=== PATIENT | female | born 1940 | race African-American/Black ===

== ENCOUNTER 2016-10-16 03:10 | Inpatient (IN) | payer MEDICARE, MEDICAID ==
[~2016-10-16] VITALS: Ht 162.6 cm; Wt 70.1 kg
[2016-10-16] VITALS (10 sets, daily range): BP systolic 116–151; BP diastolic 75–110
[~2016-10-16 03:10] MED LIST: ATORVASTATIN CA20 MG ORAL; CARVEDILOL3.125 MG ORAL; CLOPIDOGREL75 MG ORAL; DIOVAN40 MG ORAL; FUROSEMIDE20 M1 ORAL; HYDRALAZINE HCL10 MG ORAL; RANITIDINE HCL150 MG ORAL
[2016-10-16] MEDS ORDERED: Metoprolol 5mg/5ml Inj IVP ONE (03:30)
[2016-10-16] MEDS ORDERED: NITROGLYCERIN0.4 MG SL (03:36)
[2016-10-16] MEDS ORDERED: NEPHRO-VITE RX1 EAC1 PO (03:36)
[2016-10-16] MEDS ORDERED: ASPIRIN81 MG ORAL (03:36)
[2016-10-16] MEDS ORDERED: ATORVASTATIN CA80 MG ORAL (03:36)
[2016-10-16] MEDS ORDERED: LASIX20 M1 ORAL (03:36)
[2016-10-16] MEDS ORDERED: FERROUS SULFAT325 MG ORAL (03:36)
[2016-10-16] MEDS ORDERED: COREG12.5 MG ORAL (03:36)
[2016-10-16 03:44] LABS: BASOPHILS % (AUTO) 1.3 % (0.0-2.0); EOSINOPHILS % (AUTO) 1.1 % (0.0-3.0); LYMPHOCYTES % (AUTO) 24.5 % (20.0-45.0); MEAN CORPUSCULAR HEMOGLOBIN 30.2 PG (27.0-31.0); MEAN CORPUSCULAR HGB CONC 32.9 G/DL (32.0-36.0); MEAN CORPUSCULAR VOLUME 92 FL (80-99); MEAN PLATELET VOLUME 7.2 FL (6.5-10.1); MONOCYTES % (AUTO) 9.4 % (1.0-10.0); NEUTROPHILS % (AUTO) 63.7 % (45.0-75.0); PLATELET COUNT 203 K/UL (150-450); RED BLOOD COUNT 3.57 M/UL (4.20-5.40); WHITE BLOOD COUNT 5.1 K/UL (4.8-10.8)
[2016-10-16] MEDS ORDERED: TRAMADOL HCL50 MG ORAL (03:49)
[2016-10-16] MEDS ORDERED: XANAX2 MG ORAL (03:49)
[2016-10-16] MEDS ORDERED: GABAPENTIN300 MG ORAL (03:49)
[2016-10-16] MEDS ORDERED: ADVAIR 100-501 EACH INH (03:49)
[2016-10-16 04:07] LABS: TROPONIN I < 0.30 ng/mL (<=0.30)
[2016-10-16 04:08] LABS: ALANINE AMINOTRANSFERASE 50 U/L (3-33); ALBUMIN/GLOBULIN RATIO 1.1 (1.0-2.7); ANION GAP 22 (5-15); ASPARTATE AMINO TRANSFERASE 60 U/L (5-40); CALCIUM 10.2 mg/dL (8.6-10.2); CARBON DIOXIDE 17 mEQ/L (20-30); CHLORIDE 98 mEQ/L (98-107); CREATININE 2.2 mg/dL (0.5-0.9); HEMOLYSIS 5; POTASSIUM 4.1 mEQ/L (3.4-4.9); SODIUM 137 mEQ/L (135-145); TOTAL PROTEIN 6.8 g/dL (6.6-8.7)
[2016-10-16 04:18] LABS: CKMB 4.1 ng/mL (< 3.8)
--- NOTE | 2016-10-16 05:32 | Emergency Room Report ---
History of Present Illness General Chief Complaint: Chest Pain Source: Patient, Medical Record, EMS Present Illness HPI This is a 75-year-old female with a history of cardiomyopathy and CHF. Her ejection fraction is around 20% per family. Patient is scheduled for AICD and pacemaker. She has not made an appointment yet.She presents with chest pain and shortness of breath. Onset tonight. No fever or chills. No radiation. Worse with exertion. She took nitroglycerin without much relief. EMS gave her aspirin and nitroglycerin. Similar symptom in the past. Allergies: Coded Allergies: No Known Allergies (Unverified , 10/08/15) Patient History Past Medical History: see triage record, old chart reviewed, HTN Past Surgical History: other Pertinent Family History: none Social History: Denies: smoking Now: No Immunizations: other Reviewed Nursing Documentation: PMH: Agreed, PSxH: Agreed Nursing Documentation-PMH Hx Cardiac Problems: Yes - stent placement Hx Hypertension: Yes Hx Diabetes: No Hx Cancer: No Hx Gastrointestinal Problems: No Hx Neurological Problems: Yes Hx Cerebrovascular Accident: Yes - 2008 Review of Systems Eye: Denies: blurred vision, eye pain ENT: Denies: ear pain, nose congestion, throat swelling Respiratory: Denies: cough, shortness of breath Cardiovascular: Reports: chest pain, palpitations Gastrointestinal: Denies: abdominal pain, diarrhea, nausea, vomiting Musculoskeletal: Denies: back pain, joint pain Skin: Denies: rash Neurological: Denies: headache, numbness Endocrine: Denies: increased thirst, increased urine Hematologic/Lymphatic: Denies: easy bruising All Other Systems: negative except mentioned in HPI Physical Exam Vital Signs Date Time Temp Pulse Resp B/P Pulse Ox O2 Delivery O2 Flow Rate FiO2 10/16/16 03:06 97.9 127 19 151/110 96 Room Air 10/16/16 05:17 2.0 vitals with tachycardia and hypertension Sp02 EP Interpretation: reviewed, normal General Appearance: alert, mild distress, Chronically Ill Head: normocephalic, atraumatic Eyes: bilateral eye EOMI, bilateral eye PERRL ENT: hearing grossly normal, normal pharynx Neck: full range of motion, supple, no meningismus Respiratory: chest non-tender, decreased breath sounds Cardiovascular #1: regular rate, rhythm, no murmur, tachycardia Gastrointestinal: normal bowel sounds, non tender, no mass, no organomegaly, no bruit, non-distended Musculoskeletal: back normal, normal range of motion Neurologic: alert, oriented x3 Psychiatric: mood/affect normal Skin: warm/dry Medical Decision Making Diagnostic Impression: Primary Impression: ACS (acute coronary syndrome) Additional Impressions: Rapid palpitations Anemia Qualified Codes: D64.9 - Anemia, unspecified Hypertension Qualified Codes: I10 - Essential (primary) hypertension CKD (chronic kidney disease) Qualified Codes: N18.9 - Chronic kidney disease, unspecified Cardiomyopathy Qualified Codes: I42.9 - Cardiomyopathy, unspecified ER Course Patient presents with chest pain and palpitation. Heart rate improved after Lopressor. No evidence of ACS, PE, dissection. Will admit for further workup. I will get the patient to Dr. Alvarez who admitted her last year. Lab Results Impression labs at baseline EKG Diagnostic Results Rate: normal, tachycardiac Rhythm: NSR ST Segments: other Other Impression EKG #2: NSR at 76. LBBB. No ST elevation. Interpreted by me. Rhythm Strip Diag. Results EP Interpretation: yes Rate: 80 Rhythm: NSR, no PVC's, no ectopy Chest X-Ray Diagnostic Results EP Interpretation: Yes Findings: no consolidation, no effusion, no pneumothorax, no acute cardiopulmonary disease, other - CM Number of Views: 1 Last Vital Signs Date Time Temp Pulse Resp B/P Pulse Ox O2 Delivery O2 Flow Rate FiO2 10/16/16 05:17 97.9 78 21 128/78 100 Nasal Cannula 2.0 Status: improved Disposition: ADMITTED INPATIENT Condition: Serious Referrals: NOT CHOSEN DIEGO/,REFERRING (PCP) EB NORMAN M.D. Oct 16, 2016 05:32
[2016-10-16 07:19] LABS: APPEARANCE,URINE CLEAR; KETONES,URINE NEGATIVE (NEGATIVE); LEUKOCYTE ESTERASE ,URINE 3+ (NEGATIVE); NITRITE,URINE NEGATIVE (NEGATIVE); PH,URINE 5 (4.5-8.0); PROTEIN,URINE 2+ (NEGATIVE); UROBILINOGEN,URINE NORMAL MG/DL (0.0-1.0)
[2016-10-16 07:32] LABS: BACTERIA,URINE FEW /HPF; RBC,URINE 0-2 /HPF (0 - 2); SQUAMOUS EPITHELIAL CELL,UR FEW /LPF (NONE/OCC)
[2016-10-16 11:52] LABS: TROPONIN I < 0.30 ng/mL (<=0.30)
--- NOTE | 2016-10-16 12:11 | Cardiology Report ---
APPROVED REPORT EKG Measurement Heart [id number] Normal sinus rhythm Left axis deviation Left bundle branch block Abnormal ECG
[2016-10-16] MEDS ORDERED: VITAMIN D250000 UNI1 (19:01)
[2016-10-17] VITALS: BP 145/97
[2016-10-17] MEDS: HydrALAZINE 10mg Tab ORAL SCH ×4 (00:15→17:14)
[2016-10-17] MEDS: Heparin 5000 units/ml inj SUBQ SCH ×3 (00:16→21:33)
[2016-10-17 04:00] VITALS: BP 133/93
[2016-10-17] MEDS: traMADol 50mg tab ORAL PRN ×2 (05:04→21:32)
[2016-10-17] MEDS: Nitroglycerin Subl 0.4mg tab (Bottle Of 25) SL PRN ×2 (07:43→07:54)
[2016-10-17 08:00] VITALS: BP 136/101
[2016-10-17 08:02] LABS: BASOPHILS % (AUTO) 1.2 % (0.0-2.0); EOSINOPHILS % (AUTO) 1.7 % (0.0-3.0); MEAN CORPUSCULAR HEMOGLOBIN 31.9 PG (27.0-31.0); MEAN CORPUSCULAR HGB CONC 34.4 G/DL (32.0-36.0); MEAN CORPUSCULAR VOLUME 93 FL (80-99); MEAN PLATELET VOLUME 6.6 FL (6.5-10.1); NEUTROPHILS % (AUTO) 50.2 % (45.0-75.0); PLATELET COUNT 220 K/UL (150-450); RED BLOOD COUNT 3.51 M/UL (4.20-5.40); RED CELL DISTRIBUTION WIDTH 13.8 % (11.6-14.8)
[2016-10-17] MEDS: Aspirin Baby 81mg ORAL SCH (08:22)
[2016-10-17 08:28] LABS: TROPONIN I < 0.30 ng/mL (<=0.30)
[2016-10-17 08:32] LABS: ANION GAP 16 (5-15); CALCIUM 10.3 mg/dL (8.6-10.2); CARBON DIOXIDE 20 mEQ/L (20-30); CHLORIDE 105 mEQ/L (98-107); CREATININE 2.4 mg/dL (0.5-0.9); HEMOLYSIS 0; PHOSPHORUS 3.9 mg/dL (2.5-4.8); POTASSIUM 4.6 mEQ/L (3.4-4.9); SODIUM 141 mEQ/L (135-145)
[2016-10-17 12:00] VITALS: BP 138/92
--- NOTE | 2016-10-17 12:00 | Consultation ---
History of Present Illness General Date patient seen: Oct 17, 2016 Chief Complaint: Chest Pain Referring physician: Dr. Epperson Reason for Consultation: Chest pain, dypsne Present Illness HPI 75-year-old female with a history of cardiomyopathy and CHF. Her ejection fraction is around 20% per family. .She presents with chest pain and shortness of breath a few hours prior to presentation. No fever or chills. No radiation. Worse with exertion. She took nitroglycerin without much relief. EMS gave her aspirin and nitroglycerin. She doesn't have any phlegmn, nor fever or chills. On and off episodes of dyspnea. especially WALKER Allergies: Coded Allergies: No Known Allergies (Unverified , 10/08/15) Medication History Scheduled Aspirin* (Aspirin*), 81 MG ORAL DAILY, (Reported) Atorvastatin Calcium* (Atorvastatin Calcium*), 20 MG ORAL BEDTIME, (Reported) Atorvastatin Calcium* (Lipitor*), 80 MG ORAL BEDTIME, (Reported) Carvedilol (Coreg), 0.5 TAB ORAL EVERY 12 HOURS, (Reported) Carvedilol* (Carvedilol*), 3.125 MG ORAL EVERY 12 HOURS, (Reported) Clopidogrel* (Clopidogrel*), 75 MG ORAL DAILY, (Reported) Ferrous Sulfate* (Ferrous Sulfate*), 325 MG ORAL TWICE A DAY, (Reported) Fluticasone/Salmeterol (Advair 100-50 Diskus), 1 PUFF INH EVERY 6 HOURS, ( Reported) Furosemide* (Lasix*), 20 MG ORAL DAILY, (Reported) Furosemide* (Lasix*), 20 MG ORAL TWICE A DAY, (Reported) Gabapentin* (Gabapentin*), 300 MG ORAL BEDTIME, (Reported) Hydralazine Hcl* (Hydralazine Hcl*), 10 MG ORAL EVERY 6 HOURS, (Reported) Nitroglycerin (Nitroglycerin), 0.4 MG SL x3 q 5 mins, (Reported) Ranitidine Hcl* (Zantac*), 150 MG ORAL DAILY, (Reported) Valsartan (Diovan), 40 MG ORAL DAILY, (Reported) Vit B Cmplx 3/Fa/Vit C/Biotin (Nephro-Riley Rx Tablet), 1 EACH PO DAILY, ( Reported) Scheduled PRN Alprazolam* (Xanax*), 2 MG ORAL BEDTIME PRN for PRN ANXIETY/AGITATION, (Reported ) Tramadol Hcl* (Ultram*), 50 MG ORAL Q6H PRN for For Pain, (Reported) Miscellaneous Medications Ergocalciferol (Vitamin D2)* (Vitamin D*), (Reported) Patient History Healthcare decision maker Resuscitation status Full Code Advanced Directive on File No Past Medical/Surgical History Past Medical/Surgical History: (1) CKD (chronic kidney disease) (2) Hypertension (3) Anemia Review of Systems All Other Systems: negative except mentioned in HPI Physical Exam General Appearance: WD/WN, alert Lines, tubes and drains: peripheral, central line HEENT: normocephalic, atraumatic Neck: non-tender, normal alignment Respiratory/Chest: chest wall non-tender, lungs clear Cardiovascular/Chest: normal peripheral pulses, normal rate Abdomen: normal bowel sounds, non tender Genitourinary/Rectal: normal genital exam, normal rectal exam Last 24 Hour Vital Signs Date Time Temp Pulse Resp B/P Pulse Ox O2 Delivery O2 Flow Rate FiO2 10/17/16 08:22 128 136/101 10/17/16 08:00 97.7 128 20 136/101 100 Nasal Cannula 2.0 10/17/16 08:00 128 10/17/16 07:54 142/100 10/17/16 07:43 160/110 10/17/16 05:47 123/83 10/17/16 04:00 87 10/17/16 04:00 97.7 87 20 133/93 97 Room Air 10/17/16 00:15 145/97 10/17/16 00:00 97.5 87 16 145/97 96 Room Air 10/17/16 00:00 90 10/16/16 23:10 88 127/83 10/16/16 20:00 90 10/16/16 17:57 97.9 88 21 127/83 99 Room Air 10/16/16 17:29 98.2 81 16 143/80 99 Room Air 2.0 10/16/16 17:24 98.2 81 16 143/80 99 Room Air 2.0 10/16/16 16:13 98.2 87 16 119/83 97 Nasal Cannula 2.0 10/16/16 16:00 88 10/16/16 13:32 90 16 132/95 98 Nasal Cannula 2.0 10/16/16 13:32 97.9 83 16 126/87 98 Nasal Cannula 2.0 10/16/16 12:00 83 16 98 Nasal Cannula 2.0 Intake and Output 10/16/16 10/17/16 19:00 07:00 Intake Total 465 ml 240 ml Output Total 700 ml Balance -235 ml 240 ml Intake Oral 465 ml 240 ml Output Urine Total 700 ml Laboratory Tests Test 10/17/16 07:10 White Blood Count 5.0 K/UL (4.8-10.8) Red Blood Count 3.51 M/UL (4.20-5.40) L Hemoglobin 11.2 G/DL (12.0-16.0) L Hematocrit 32.5 % (37.0-47.0) L Mean Corpuscular Volume 93 FL (80-99) Mean Corpuscular Hemoglobin 31.9 PG (27.0-31.0) H Mean Corpuscular Hemoglobin Concent 34.4 G/DL (32.0-36.0) Red Cell Distribution Width 13.8 % (11.6-14.8) Platelet Count 220 K/UL (150-450) Mean Platelet Volume 6.6 FL (6.5-10.1) Neutrophils (%) (Auto) 50.2 % (45.0-75.0) Lymphocytes (%) (Auto) 39.0 % (20.0-45.0) Monocytes (%) (Auto) 8.0 % (1.0-10.0) Eosinophils (%) (Auto) 1.7 % (0.0-3.0) Basophils (%) (Auto) 1.2 % (0.0-2.0) Sodium Level 141 mEQ/L (135-145) Potassium Level 4.6 mEQ/L (3.4-4.9) Chloride Level 105 mEQ/L (98-107) Carbon Dioxide Level 20 mEQ/L (20-30) Anion Gap 16 (5-15) H Blood Urea Nitrogen 41 mg/dL (7-23) H Creatinine 2.4 mg/dL (0.5-0.9) H Estimat Glomerular Filtration Rate mL/min (>60) Glucose Level 124 mg/dL (74-106) H Calcium Level 10.3 mg/dL (8.6-10.2) H Phosphorus Level 3.9 mg/dL (2.5-4.8) Magnesium Level 2.0 mg/dL (1.7-2.5) Troponin I < 0.30 ng/mL (<=0.30) Height (Feet): 5 Height (Inches): 4.00 Weight (Pounds): 164 Medications Current Medications Medications (Trade) Dose Ordered Sig/Haley Route PRN Reason Start Time Stop Time Status Last Admin Dose Admin Acetaminophen (Tylenol) 650 mg Q6H PRN ORAL Mild Pain/Temp > 100.5 10/16/16 20:45 11/15/16 20:44 Aspirin (ASA) 81 mg DAILY ORAL 10/17/16 09:00 11/16/16 08:59 10/17/16 08:22 Atorvastatin Calcium (Lipitor) 20 mg BEDTIME ORAL 10/16/16 22:00 11/15/16 21:59 10/16/16 23:10 Carvedilol (Coreg) 3.125 mg EVERY 12 HOURS ORAL 10/16/16 22:00 11/15/16 21:59 10/17/16 08:22 Clopidogrel Bisulfate (Plavix) 75 mg DAILY ORAL 10/17/16 09:00 11/16/16 08:59 10/17/16 08:22 Ferrous Sulfate (Feosol) 325 mg TWICE A DAY ORAL 10/16/16 23:50 11/15/16 23:49 10/17/16 08:22 Furosemide (Lasix) 20 mg TWICE A DAY ORAL 10/16/16 23:50 11/15/16 23:49 10/17/16 08:22 Gabapentin (Neurontin) 300 mg BEDTIME ORAL 10/16/16 21:00 11/15/16 20:59 10/16/16 23:10 Heparin Sodium (Porcine) (Heparin 5000 units/ml) 5,000 units EVERY 12 HOURS SUBQ 10/16/16 23:51 11/15/16 23:50 10/17/16 08:24 Hydralazine HCl (Apresoline) 10 mg EVERY 6 HOURS ORAL 10/17/16 00:00 11/16/16 00:00 10/17/16 05:47 Nitroglycerin (Ntg) 0.4 mg Q5M PRN SL Prn Chest Pain 10/17/16 07:15 11/16/16 07:14 10/17/16 07:54 Ranitidine HCl (Zantac) 150 mg DAILY ORAL 10/17/16 09:00 11/16/16 08:59 10/17/16 08:22 Tramadol HCl (Ultram) 50 mg Q6H PRN ORAL For Pain 10/16/16 20:45 10/23/16 20:44 10/17/16 05:04 Assessment/Plan Problem List: (1) ACS (acute coronary syndrome) ICD Codes: I24.9 - Acute ischemic heart disease, unspecified SNOMED: 390136020 (2) Shortness of breath ICD Codes: R06.02 - Shortness of breath SNOMED: 892180300 (3) CKD (chronic kidney disease) ICD Codes: N18.9 - Chronic kidney disease, unspecified SNOMED: 539574525 Qualifiers: Qualified Codes: N18.9 - Chronic kidney disease, unspecified (4) Coronary artery disease ICD Codes: I25.10 - Atherosclerotic heart disease of [place] coronary artery without angina pectoris SNOMED: 64802654 Assessment/Plan serial ekg, troponin Echocardiogram cardio evaluation might need some sort of stress studies renal evaluation DARLENE VALERIO Oct 17, 2016 12:00
[2016-10-17] MEDS ORDERED: Nitroglycerin Subl 0.4mg tab (Bottle Of 25) SL SCH (12:30)
--- NOTE | 2016-10-17 12:36 | Cardiology Progress Note ---
Assessment/Plan Assessment/Plan [id number] chest pain mi ruled out hs of rca stent many hyears ago neg perfusion imagign at cv 03/2016 acute n chronic chf dcm pulm htn asthma ckd cr 2-2.4 acei /;arb allergy all trop neg LBBB not new known cm need bp controll will increase hydralazine and add ntp will need to see dr ceballos for manager area as planned as outpt Objective Last 24 Hour Vital Signs Date Time Temp Pulse Resp B/P Pulse Ox O2 Delivery O2 Flow Rate FiO2 10/17/16 12:20 139/107 10/17/16 08:22 128 136/101 10/17/16 08:00 97.7 128 20 136/101 100 Nasal Cannula 2.0 10/17/16 08:00 128 10/17/16 07:54 142/100 10/17/16 07:43 160/110 10/17/16 05:47 123/83 10/17/16 04:00 87 10/17/16 04:00 97.7 87 20 133/93 97 Room Air 10/17/16 00:15 145/97 10/17/16 00:00 97.5 87 16 145/97 96 Room Air 10/17/16 00:00 90 10/16/16 23:10 88 127/83 10/16/16 20:00 90 10/16/16 17:57 97.9 88 21 127/83 99 Room Air 10/16/16 17:29 98.2 81 16 143/80 99 Room Air 2.0 10/16/16 17:24 98.2 81 16 143/80 99 Room Air 2.0 10/16/16 16:13 98.2 87 16 119/83 97 Nasal Cannula 2.0 10/16/16 16:00 88 10/16/16 13:32 90 16 132/95 98 Nasal Cannula 2.0 10/16/16 13:32 97.9 83 16 126/87 98 Nasal Cannula 2.0 Intake and Output 10/16/16 10/17/16 19:00 07:00 Intake Total 465 ml 240 ml Output Total 700 ml Balance -235 ml 240 ml Intake Oral 465 ml 240 ml Output Urine Total 700 ml Laboratory Tests Test 10/17/16 07:10 White Blood Count 5.0 K/UL (4.8-10.8) Red Blood Count 3.51 M/UL (4.20-5.40) L Hemoglobin 11.2 G/DL (12.0-16.0) L Hematocrit 32.5 % (37.0-47.0) L Mean Corpuscular Volume 93 FL (80-99) Mean Corpuscular Hemoglobin 31.9 PG (27.0-31.0) H Mean Corpuscular Hemoglobin Concent 34.4 G/DL (32.0-36.0) Red Cell Distribution Width 13.8 % (11.6-14.8) Platelet Count 220 K/UL (150-450) Mean Platelet Volume 6.6 FL (6.5-10.1) Neutrophils (%) (Auto) 50.2 % (45.0-75.0) Lymphocytes (%) (Auto) 39.0 % (20.0-45.0) Monocytes (%) (Auto) 8.0 % (1.0-10.0) Eosinophils (%) (Auto) 1.7 % (0.0-3.0) Basophils (%) (Auto) 1.2 % (0.0-2.0) Sodium Level 141 mEQ/L (135-145) Potassium Level 4.6 mEQ/L (3.4-4.9) Chloride Level 105 mEQ/L (98-107) Carbon Dioxide Level 20 mEQ/L (20-30) Anion Gap 16 (5-15) H Blood Urea Nitrogen 41 mg/dL (7-23) H Creatinine 2.4 mg/dL (0.5-0.9) H Estimat Glomerular Filtration Rate mL/min (>60) Glucose Level 124 mg/dL (74-106) H Calcium Level 10.3 mg/dL (8.6-10.2) H Phosphorus Level 3.9 mg/dL (2.5-4.8) Magnesium Level 2.0 mg/dL (1.7-2.5) Troponin I < 0.30 ng/mL (<=0.30) ANGELY THAKKAR Oct 17, 2016 12:36
[2016-10-17 15:44] VITALS: BP 123/94
--- NOTE | 2016-10-17 15:49 | History & Physical ---
History and Physical History & Physicial Dictated for Int Med-Dr Alvarez no. [id number]. MENG HUFF Oct 17, 2016 15:49
--- NOTE | 2016-10-17 16:12 | Consultation ---
Consult Note Consult Note asked to eval for renal failure HPI This is a 75-year-old female with a history of cardiomyopathy and CHF. Her ejection fraction is around 20% per family. Patient is scheduled for AICD and pacemaker. She has not made an appointment yet.She presents with chest pain and shortness of breath. Onset tonight. No fever or chills. No radiation. Worse with exertion. She took nitroglycerin without much relief. EMS gave her aspirin and nitroglycerin. Similar symptom in the past. Patient interviewed, examined and data reviewed . Assessment/Plan Status: Renal failure, likely chronic with maybe superimposed acute- CP on presentation, with history of CAD and previous stent Cardiomypathy with low EJfx Anemia Pulmonary HTN Darin I Allery on the record- Plan: Monitor renal parameters- Avoid Nephrotoxics- Anemia lino Optimize cardiac and pulmonary status per orders RONEL GIRALDO Oct 17, 2016 16:12
[2016-10-17 20:00] VITALS: BP 150/112
[2016-10-17] MEDS: Atorvastatin 80mg tab ORAL SCH (21:31)
[2016-10-17] MEDS: Carvedilol 6.25mg Tab ORAL SCH (21:31)
--- NOTE | 2016-10-17 22:18 | Consultation ---
DATE OF CONSULTATION: 10/16/2016 CARDIOLOGY CONSULTATION CONSULTING PHYSICIAN: Nakul Phan M.D. REFERRING PHYSICIAN: Lata Reece M.D. REASON FOR CONSULTATION: Chest pain. HISTORY OF PRESENT ILLNESS: This is an elderly female, who is usually followed by Dr. Sanderson and colleagues. The patient complained of some tightness and heaviness in the chest and that is the main reason that she has called the paramedics. Apparently, she took some nitroglycerin and that usually helped. Paramedics were summoned and brought the patient to the emergency room because of her complaints of three hours of chest pain. She describes as a tightness. She has had shortness of breath for approximately one year and they have gotten worse somewhat in the recent past. The patient does have shortness of breath on exertion. She does have two-pillow usage and she has heart pounding with palpitation. No dizziness or lightheadedness on standing position. PAST MEDICAL HISTORY: Positive for history of malignant hypertension, left bundle-branch conduction defect, congestive heart failure, asthma, proximal supraventricular tachycardia, dilated cardiomyopathy, coronary artery disease, right coronary artery stent in 2012 with history of chest pain, history of stage 4 kidney disease, anxiety, congestive heart failure, lumbar stenosis, renal sufficiency, vitamin D deficiency, and anemia of chronic disease as well. The patient is allergic to ALIVIA inhibitors as well as Diovan as well as [place] according to the [facility] records. She has had acute systolic and diastolic heart failure before with ejection fraction of 25%. Demand ischemia was noted previously and history of significant pulmonary hypertension as well as cerebrovascular accident and asthma. The patient recently has been hospitalized at [facility] back in August of 2016 and was supposed to meet up with Dr. Wolfe for SOLUTION CONSULTANT/ICD placement, but she seems as though that has not happened yet. MEDICATIONS AT HOME: Xanax 2 mg, aspirin 81 mg, Lipitor, not sure 20 or 80 mg, Coreg, Plavix, vitamin C, vitamin D, Lasix 20 mg twice daily, gabapentin, hydralazine, and nitroglycerin. However this is rather difficult to tell how much of these she is actually taking, but her medications from the recent discharge from [facility] is B complex vitamin and ferrous sulfate. She is on Lasix 20 mg on a daily basis, Advair Diskus, , aspirin 81 mg, Lipitor 80 mg, Coreg 6.25 mg twice a day, Plavix 75 mg, vitamin D 50,000 once a week, Neurontin 300 mg nightly, hydralazine 25 mg two times daily, multivitamins, nitroglycerin, Zantac, and tramadol. She was taken off the Diovan recently. SOCIAL HISTORY: She does not smoke or drink alcoholic beverages. Denies any drug use. REVIEW OF SYSTEMS: Gastrointestinal: She has had some nausea and vomiting. No diarrhea. No bloody stools or tarry stools. Nausea and vomiting was not recent. Genitourinary: Negative. Pulmonary: She had some cough and occasional wheezing. Constitutional: She has had some chills, but no fevers at home. Neurologic: Negative. PHYSICAL EXAMINATION: GENERAL: Shows to be elderly female in no apparent respiratory distress. NECK: Supple. No jugular venous distention. LUNGS: Appear to be clear to auscultation and percussion. CARDIAC: Regular rhythm. Tachycardic. A faint holosystolic regurgitant murmur is noted. ABDOMEN: Soft and nontender. Positive bowel sounds. EXTREMITIES: There is no clubbing, cyanosis, or edema. NEUROLOGIC: She is awake, alert, responsive, and in no apparent respiratory distress. LABORATORY DATA: Records from [facility] were reviewed. She had the last echocardiogram in August 2016 on the 3rd shows severely depressed LV function, ejection fraction of 25%, mild diastolic dysfunction, left ventricular filling pattern secondary to wall motion abnormality with apical inferoseptal wall, hypokinesis of the other saleem, and pulmonary artery systolic pressure 60 mmHg was noted on that lab. Remainder of her labs here, white count 5, hemoglobin 11.2, and platelet count of 220,000. Sodium is 141, potassium 4.2, chloride 105, bicarbonate 20, BUN of 41, creatinine 2.6, and glucose of 124. Calcium is 10.3. Three sets of cardiac enzymes, all three were negative. ProBNP is only 31,000. Her urine analysis, 5 to 10 WBCs, 3+ leukocyte esterase, and 0 to 2 RBCs. Her chest x-ray shows significant cardiomegaly, but no acute pulmonary edema being visible. Her electrocardiogram shows left bundle-branch conduction defect, which is not new and has been present on prior occasions. Her last perfusion imaging was an incomplete study back in 2014 as the patient declined stress imaging at that time, but she had 6% defect in the anterior septal wall at that time with ejection fraction of 28%. However in March of 2016, she had a perfusion imaging at [facility] that showed no reversible and no fixed defects with ejection fraction of 41%, left ventricular enlargement, abnormal septal motion secondary to conduction disorder, and this has not changed significantly since 2015 study apparently. Her creatinine at [facility] has ranged anywhere between 2 to 2.4 back in August of 2016. ASSESSMENT: 1. Acute on chronic congestive heart failure. 2. Chest pain with no evidence of myonecrosis. 3. Cardiomyopathy, dilated. 4. Coronary artery disease history with right coronary artery stenting previously. 5. Pulmonary hypertension. 6. Chronic renal insufficiency. 7. History of asthma. 8. History of cerebrovascular accident. PLAN: Dr. Reece, this patient was seen in cardiac consultation. The patient's main symptom on presentation appears to be a chest pain although there are no electrocardiographic abnormalities compared to previously and three sets of cardiac enzymes are negative so far. She does have a history of shortness of breath that has been going on for approximately one year. We will try to diurese a bit more, although I suspect that she should proceed with the recommendation of Dr. Wolfe with cardiac resynchronization therapy for her cardiomyopathy and congestive heart failure to help. She has had an ischemic evaluation back in March of 2016 approximately six months ago and that was negative in light of the fact that the cardiac enzymes are negative and I do not favor proceeding in that direction any further, just treatment of congestive heart failure for few days and follow up with Dr. Wofle and/or whoever she wishes for further treatment of her cardiomyopathy in the future. She is not able to take ALIVIA inhibitors because of allergies nor ARBs, therefore hydralazine and nitrates are to be continued. Her vital signs show significant elevation of blood pressure indicating that room exists for increasing the dose of those medications especially in light of the fact that she has heart failure as well. We will proceed with increasing the doses of medication as possible. Nakul Phan M.D. DR: CHACORTA JOB#: [id number] CC:
[2016-10-18 00:14] VITALS: BP 152/105
[2016-10-18] MEDS: HydrALAZINE 10mg Tab ORAL SCH ×4 (00:19→18:00)
[2016-10-18 04:30] VITALS: BP 134/93
--- NOTE | 2016-10-18 07:08 | History and Physical Report ---
DATE OF ADMISSION: 10/16/2016 CHIEF COMPLAINT: The patient is a 75-year-old, female with history of cardiomyopathy and congestive heart failure, who presents with complaint of chest pain. HISTORY OF PRESENT ILLNESS: History of present illness began on 10/16/2016. The patient began to experience chest pain. There is no radiation to the jaw or to the shoulder. The patient presented to [place] [facility]. The patient is admitted for chest pain to rule out acute coronary syndrome. PAST MEDICAL HISTORY: Significant for, 1. Congestive heart failure with an ejection fraction of 20%. 2. Cardiomyopathy. 3. Hypertension. 4. Coronary artery disease, status post stent placement in March 2016. 5. Hypercholesterolemia. 6. Chronic renal failure. PAST SURGICAL HISTORY: The patient denies. CURRENT MEDICATIONS: 1. Xanax 2 mg one tablet p.o. q.8 hours p.r.n. 2. Aspirin 81 mg one tablet p.o. daily. 3. Lipitor 20 mg one tablet p.o. q.h.s. 4. Coreg 12.5 mg one tablet p.o. twice daily. 5. Plavix 75 mg one tablet p.o. daily. 6. Vitamin D 50,000 units q. weekly. 7. Iron sulfate 325 mg one tablet p.o. twice daily. 8. Advair 100/50 one puff p.o. twice daily. 9. Lasix 20 mg one tablet p.o. daily. 10. Gabapentin 300 mg one tablet p.o. q.h.s. 11. Hydralazine 10 mg p.o. q.6 hours. 12. Tramadol 50 mg one tablet p.o. p.r.n. 13. Zantac 150 mg one tablet p.o. daily. 14. Valsartan 40 mg one tablet p.o. daily. 15. Nephro-Riley one tablet p.o. daily. ALLERGIES: No known drug allergies. SOCIAL HISTORY: The patient is single and lives with her in-home health care services. The patient denies tobacco or alcohol use. REVIEW OF SYSTEMS: Constitutional: The patient denies weight loss or weight gain. The patient denies fevers or chills. HEENT: The patient denies ear or throat pain. Cardiovascular: The patient complains of chest pain as above. The patient denies palpitations. Chest: The patient denies wheeze or shortness of breath. Abdomen: The patient denies nausea, vomiting, diarrhea, or constipation. Genitourinary: The patient denies dysuria or increased frequency of urination. Neuromuscular: The patient denies seizures or generalized weakness. PHYSICAL EXAMINATION: VITAL SIGNS: Temperature 97.7 degrees, pulse tachycardic at 128, respiratory rate 20, and blood pressure 136/101. GENERAL: The patient is a well-developed, well-nourished, thin-appearing, female, in no apparent distress. HEENT: Eyes, pupils are equal and responsive to light accommodation. Extraocular movements are intact. NECK: Supple without lymphadenopathy. CHEST: Lungs are clear to auscultation bilaterally without wheezes or rales. CARDIOVASCULAR: Tachycardic to approximately 120 beats per minute. Regular rhythm and rate. S1 and S2 normal without murmurs, rubs, or gallops. ABDOMEN: Soft, nontender, and nondistended. Positive bowel sounds. No evidence of hepatosplenomegaly. Currently, no rebound or guarding. EXTREMITIES: Negative for clubbing, cyanosis, or edema. RECTAL: Refused. GENITAL: Refused. NEUROLOGIC: Cranial nerves II through XII are grossly intact without focal deficits. Motor strength is 5/5 bilaterally. Deep tendon reflexes 2+ plantar. LABORATORY STUDIES: WBC 5.1, hemoglobin 10.8, hematocrit 32.7, and platelets 203,000. Sodium 137, potassium 4.1, chloride 98, CO2 17, BUN 38, and creatinine 2.2. Glucose is 127. Troponin is less than 0.3. BNP elevated at 31,339. ASSESSMENT: This is a 75-year-old female. 1. Congestive heart failure. 2. Chest pain. 3. History of cardiomyopathy. 4. Hypertension. 5. Coronary artery disease. 6. Hypercholesterolemia. 7. Chronic renal failure. TREATMENT: 1. Chest pain/congestive heart failure/cardiomyopathy. Cardiology consultation was obtained with Dr. Nakul Phan. The patient's history is scheduled for pacemaker implantation at [facility]. We will follow recommendations of Cardiology. Serial troponin levels will be performed. An echocardiogram is pending. 2. Hypertension. Continue Coreg as above. 3. Coronary artery disease. The patient is status post stent placement in March 2016. 4. Hypercholesterolemia. Continue Lipitor as above. 5. Chronic renal failure. Miguel Epperson M.D. DR: JENSEN JOB#: [id number] CC:
[2016-10-18 07:57] VITALS: BP 135/100
[2016-10-18 08:12] LABS: EOSINOPHILS % (AUTO) 1.4 % (0.0-3.0); LYMPHOCYTES % (AUTO) 28.9 % (20.0-45.0); MEAN CORPUSCULAR HEMOGLOBIN 31.8 PG (27.0-31.0); MEAN CORPUSCULAR HGB CONC 34.4 G/DL (32.0-36.0); MEAN CORPUSCULAR VOLUME 93 FL (80-99); MEAN PLATELET VOLUME 6.4 FL (6.5-10.1); MONOCYTES % (AUTO) 8.6 % (1.0-10.0); NEUTROPHILS % (AUTO) 60.1 % (45.0-75.0); PLATELET COUNT 234 K/UL (150-450); RED BLOOD COUNT 3.55 M/UL (4.20-5.40); RED CELL DISTRIBUTION WIDTH 13.6 % (11.6-14.8); WHITE BLOOD COUNT 5.1 K/UL (4.8-10.8)
[2016-10-18] MEDS: Aspirin Baby 81mg ORAL SCH (08:22)
[2016-10-18] MEDS: traMADol 50mg tab ORAL PRN (08:23)
[2016-10-18] MEDS: Carvedilol 6.25mg Tab ORAL SCH ×2 (08:23→21:32)
[2016-10-18] MEDS: Heparin 5000 units/ml inj SUBQ SCH ×2 (08:24→21:33)
[2016-10-18 08:39] LABS: PHOSPHORUS 3.7 mg/dL (2.5-4.8)
[2016-10-18 08:42] LABS: ALANINE AMINOTRANSFERASE 50 U/L (3-33); ANION GAP 17 (5-15); ASPARTATE AMINO TRANSFERASE 35 U/L (5-40); CALCIUM 10.6 mg/dL (8.6-10.2); CARBON DIOXIDE 19 mEQ/L (20-30); CHLORIDE 105 mEQ/L (98-107); CREATININE 2.4 mg/dL (0.5-0.9); HEMOLYSIS 0; POTASSIUM 4.2 mEQ/L (3.4-4.9); SODIUM 141 mEQ/L (135-145)
[2016-10-18 09:36] LABS: TROPONIN I 0.65 ng/mL (<=0.30)
--- NOTE | 2016-10-18 09:37 | Diagnostic Imaging Report ---
Indication: Chest pain Technique: One view of the chest Comparison: 10/08/2015 Findings: There is cardiomegaly. Bilateral perihilar atelectatic changes or scarring are demonstrated. That on the left is unchanged and likely represents scarring. The lungs and pleural spaces are otherwise clear. Impression: Cardio megaly No acute process. Findings as noted
[2016-10-18 11:22] VITALS: BP 131/93
--- NOTE | 2016-10-18 11:23 | Internal Med Progress Note ---
Subjective Date of Service: Oct 18, 2016 Physician Name Huff,Meng Attending Physician Eddie Alvarez MD Current Medications Medications (Trade) Dose Ordered Sig/Haley Route PRN Reason Start Time Stop Time Status Last Admin Dose Admin Acetaminophen (Tylenol) 650 mg Q6H PRN ORAL Mild Pain/Temp > 100.5 10/16/16 20:45 11/15/16 20:44 Aspirin (ASA) 81 mg DAILY ORAL 10/17/16 09:00 11/16/16 08:59 10/18/16 08:22 Atorvastatin Calcium (Lipitor) 80 mg BEDTIME ORAL 10/17/16 21:00 11/16/16 20:59 10/17/16 21:31 Carvedilol (Coreg) 6.25 mg EVERY 12 HOURS ORAL 10/17/16 21:00 11/16/16 20:59 10/18/16 08:23 Clopidogrel Bisulfate (Plavix) 75 mg DAILY ORAL 10/17/16 09:00 11/16/16 08:59 10/18/16 08:23 Furosemide (Lasix) 20 mg TWICE A DAY ORAL 10/16/16 23:50 11/15/16 23:49 10/18/16 08:24 Gabapentin (Neurontin) 300 mg BEDTIME ORAL 10/16/16 21:00 11/15/16 20:59 10/16/16 23:10 Heparin Sodium (Porcine) (Heparin 5000 units/ml) 5,000 units EVERY 12 HOURS SUBQ 10/16/16 23:51 11/15/16 23:50 10/18/16 08:24 Hydralazine HCl (Apresoline) 10 mg EVERY 6 HOURS ORAL 10/17/16 00:00 11/16/16 00:00 10/18/16 05:35 Isosorbide Dinitrate (Isordil) 10 mg TID ORAL 10/17/16 13:00 11/16/16 12:59 10/18/16 08:23 Nitroglycerin (Ntg) 0.4 mg Q5M PRN SL Prn Chest Pain 10/17/16 07:15 11/16/16 07:14 10/17/16 07:54 Ranitidine HCl (Zantac) 150 mg DAILY ORAL 10/17/16 09:00 11/16/16 08:59 10/18/16 08:22 Tramadol HCl (Ultram) 50 mg Q6H PRN ORAL For Pain 10/16/16 20:45 10/23/16 20:44 10/18/16 08:23 Allergies: Coded Allergies: No Known Allergies (Unverified , 10/08/15) ROS Limited/Unobtainable: No Constitutional: Reports: no symptoms HEENT: Reports: no symptoms Cardiovascular: Reports: chest pain Respiratory: Reports: no symptoms Gastrointestinal/Abdominal: Reports: no symptoms Genitourinary: Reports: no symptoms Neurologic/Psychiatric: Reports: no symptoms Subjective 75YO F admitted for chest pain. Now CHF and elevated cardiac enzymes. Cover for Int Med - Dr Alvarez. Objective Last Vital Signs Date Time Temp Pulse Resp B/P Pulse Ox O2 Delivery O2 Flow Rate FiO2 10/18/16 09:20 96.8 10/18/16 08:23 135/100 10/18/16 08:23 133 10/18/16 07:57 18 99 Nasal Cannula 2.0 General Appearance: WD/WN, no apparent distress, alert EENT: PERRL/EOMI, normal ENT inspection Neck: non-tender, normal alignment, supple Cardiovascular: normal peripheral pulses, normal rate, regular rhythm, no gallop/murmur, no JVD Respiratory/Chest: chest wall non-tender, lungs clear, no respiratory distress , no accessory muscle use, crackles/rales Abdomen: normal bowel sounds, non tender, soft, no organomegaly, no mass Extremities: normal range of motion, non-tender 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, no motor/sensory deficits Laboratory Tests Test 10/18/16 06:55 White Blood Count 5.1 K/UL (4.8-10.8) Red Blood Count 3.55 M/UL (4.20-5.40) L Hemoglobin 11.3 G/DL (12.0-16.0) L Hematocrit 32.8 % (37.0-47.0) L Mean Corpuscular Volume 93 FL (80-99) Mean Corpuscular Hemoglobin 31.8 PG (27.0-31.0) H Mean Corpuscular Hemoglobin Concent 34.4 G/DL (32.0-36.0) Red Cell Distribution Width 13.6 % (11.6-14.8) Platelet Count 234 K/UL (150-450) Mean Platelet Volume 6.4 FL (6.5-10.1) L Neutrophils (%) (Auto) 60.1 % (45.0-75.0) Lymphocytes (%) (Auto) 28.9 % (20.0-45.0) Monocytes (%) (Auto) 8.6 % (1.0-10.0) Eosinophils (%) (Auto) 1.4 % (0.0-3.0) Basophils (%) (Auto) 1.0 % (0.0-2.0) Sodium Level 141 mEQ/L (135-145) Potassium Level 4.2 mEQ/L (3.4-4.9) Chloride Level 105 mEQ/L (98-107) Carbon Dioxide Level 19 mEQ/L (20-30) L Anion Gap 17 (5-15) H Blood Urea Nitrogen 44 mg/dL (7-23) H Creatinine 2.4 mg/dL (0.5-0.9) H Estimat Glomerular Filtration Rate mL/min (>60) Glucose Level 133 mg/dL (74-106) H Hemoglobin A1c Pending Uric Acid Pending Calcium Level 10.6 mg/dL (8.6-10.2) H Phosphorus Level 3.7 mg/dL (2.5-4.8) Magnesium Level 2.0 mg/dL (1.7-2.5) Iron Level Pending Unsaturated Iron Binding Pending Ferritin Pending Total Bilirubin 0.4 mg/dL (0.0-1.2) Gamma Glutamyl Transpeptidase Pending Aspartate Amino Transf (AST/SGOT) 35 U/L (5-40) Alanine Aminotransferase (ALT/SGPT) 50 U/L (3-33) H Alkaline Phosphatase 84 U/L (35-104) Troponin I 0.65 ng/mL (<=0.30) *H C-Reactive Protein, Quantitative Pending Pro-B-Type Natriuretic Peptide Pending Total Protein 7.0 g/dL (6.6-8.7) Albumin 3.6 g/dL (3.5-5.2) Globulin 3.4 g/dL Albumin/Globulin Ratio 1.0 (1.0-2.7) Triglycerides Level Pending Cholesterol Level Pending LDL Cholesterol Pending HDL Cholesterol Pending Cholesterol/HDL Ratio Pending Vitamin B12 Level Pending Folate Pending Thyroid Stimulating Hormone (TSH) Pending Intake and Output 10/17/16 10/18/16 19:00 07:00 Intake Total 600 ml 240 ml Balance 600 ml 240 ml Intake Oral 600 ml 240 ml # Voids 1 2 Assessment/Plan Problem List: (1) Renal failure Assessment & Plan: Hypertensive renal dis. See nephrology note. (2) CHF (congestive heart failure) (3) Chest pain Assessment & Plan: See cardiology consult. Elevated cardiac enzymes; Await stress test. (4) Cardiomyopathy Assessment & Plan: EF 20%. See cardiology note. Await AICD and pacemaker. (5) Hypertension Assessment & Plan: Continue coreg and hydralazine. (6) Hypertensive kidney disease (7) Coronary artery disease Assessment & Plan: S/P stent. Await AICD and pacemaker. (8) CKD (chronic kidney disease) Status: not improved MENG HUFF Oct 18, 2016 11:23
--- NOTE | 2016-10-18 12:23 | Pulmonology Progress Note ---
Assessment/Plan Problems: (1) ACS (acute coronary syndrome) (2) Shortness of breath (3) CKD (chronic kidney disease) (4) Coronary artery disease Assessment/Plan episode of sinus tachycardia this morning bp stable Echo is not done yet. she lost her cousin this morning and seems to be very sad initiate pt/ot Subjective ROS Limited/Unobtainable: No Constitutional: Reports: no symptoms HEENT: Repors: no symptoms Respiratory: Reports: no symptoms Cardiovascular: Reports: no symptoms Gastrointestinal/Abdominal: Reports: no symptoms Allergies: Coded Allergies: No Known Allergies (Unverified , 10/08/15) Objective Last 24 Hour Vital Signs Date Time Temp Pulse Resp B/P Pulse Ox O2 Delivery O2 Flow Rate FiO2 10/18/16 11:22 97.7 92 18 131/93 98 Nasal Cannula 2.0 10/18/16 09:20 96.8 10/18/16 08:23 135/100 10/18/16 08:23 133 135/100 10/18/16 08:00 91 10/18/16 07:57 96.8 133 18 135/100 99 Nasal Cannula 2.0 10/18/16 05:35 140/107 10/18/16 04:30 98.6 86 18 134/93 98 Nasal Cannula 2.0 10/18/16 04:00 90 10/18/16 00:19 152/105 10/18/16 00:14 98.8 129 20 152/105 99 Room Air 10/18/16 00:00 126 10/17/16 21:31 135 150/112 10/17/16 20:00 130 10/17/16 20:00 97.8 135 20 150/112 100 Room Air 10/17/16 17:14 123/94 10/17/16 17:13 123/94 10/17/16 16:00 125 10/17/16 15:44 98.1 98 21 123/94 99 Room Air 10/17/16 13:08 138/92 Intake and Output 10/17/16 10/18/16 19:00 07:00 Intake Total 600 ml 240 ml Balance 600 ml 240 ml Intake Oral 600 ml 240 ml # Voids 1 2 General Appearance: WD/WN HEENT: normocephalic, atraumatic Respiratory/Chest: chest wall non-tender, lungs clear Abdomen: normal bowel sounds, soft, non tender Genitourinary: normal external genitalia Extremities: no clubbing Skin: no rash Laboratory Tests 10/18/16 06:55: White Blood Count 5.1, Red Blood Count 3.55L, Hemoglobin 11.3L, Hematocrit 32.8L , Mean Corpuscular Volume 93, Mean Corpuscular Hemoglobin 31.8H, Mean Corpuscular Hemoglobin Concent 34.4, Red Cell Distribution Width 13.6, Platelet Count 234, Mean Platelet Volume 6.4L, Neutrophils (%) (Auto) 60.1, Lymphocytes ( %) (Auto) 28.9, Monocytes (%) (Auto) 8.6, Eosinophils (%) (Auto) 1.4, Basophils (%) (Auto) 1.0, Sodium Level 141, Potassium Level 4.2, Chloride Level 105, Carbon Dioxide Level 19L, Anion Gap 17H, Blood Urea Nitrogen 44H, Creatinine 2.4H, Estimat Glomerular Filtration Rate , Glucose Level 133H, Hemoglobin A1c [ Pending], Uric Acid [Pending], Calcium Level 10.6H, Phosphorus Level 3.7, Magnesium Level 2.0, Iron Level [Pending], Unsaturated Iron Binding [Pending], Ferritin [Pending], Total Bilirubin 0.4, Gamma Glutamyl Transpeptidase [Pending] , Aspartate Amino Transf (AST/SGOT) 35, Alanine Aminotransferase (ALT/SGPT) 50H , Alkaline Phosphatase 84, Troponin I 0.65*H, C-Reactive Protein, Quantitative [ Pending], Pro-B-Type Natriuretic Peptide 59895T, Total Protein 7.0, Albumin 3.6 , Globulin 3.4, Albumin/Globulin Ratio 1.0, Triglycerides Level [Pending], Cholesterol Level [Pending], LDL Cholesterol [Pending], HDL Cholesterol [Pending ], Cholesterol/HDL Ratio [Pending], Vitamin B12 Level [Pending], Folate [Pending ], Thyroid Stimulating Hormone (TSH) [Pending] Current Medications Medications (Trade) Dose Ordered Sig/Haley Route PRN Reason Start Time Stop Time Status Last Admin Dose Admin Acetaminophen (Tylenol) 650 mg Q6H PRN ORAL Mild Pain/Temp > 100.5 10/16/16 20:45 11/15/16 20:44 Alprazolam (Xanax) 2 mg Q8H PRN ORAL For Anxiety 10/18/16 11:45 10/25/16 11:44 Aspirin (ASA) 81 mg DAILY ORAL 10/17/16 09:00 11/16/16 08:59 10/18/16 08:22 Atorvastatin Calcium (Lipitor) 80 mg BEDTIME ORAL 10/17/16 21:00 11/16/16 20:59 10/17/16 21:31 Carvedilol (Coreg) 6.25 mg EVERY 12 HOURS ORAL 10/17/16 21:00 11/16/16 20:59 10/18/16 08:23 Clopidogrel Bisulfate (Plavix) 75 mg DAILY ORAL 10/17/16 09:00 11/16/16 08:59 10/18/16 08:23 Furosemide (Lasix) 20 mg TWICE A DAY ORAL 10/16/16 23:50 11/15/16 23:49 10/18/16 08:24 Gabapentin (Neurontin) 300 mg BEDTIME ORAL 10/16/16 21:00 11/15/16 20:59 10/16/16 23:10 Heparin Sodium (Porcine) (Heparin 5000 units/ml) 5,000 units EVERY 12 HOURS SUBQ 10/16/16 23:51 11/15/16 23:50 10/18/16 08:24 Hydralazine HCl (Apresoline) 10 mg EVERY 6 HOURS ORAL 10/17/16 00:00 11/16/16 00:00 10/18/16 05:35 Isosorbide Dinitrate (Isordil) 10 mg TID ORAL 10/17/16 13:00 11/16/16 12:59 10/18/16 08:23 Nitroglycerin (Ntg) 0.4 mg Q5M PRN SL Prn Chest Pain 10/17/16 07:15 11/16/16 07:14 10/17/16 07:54 Ranitidine HCl (Zantac) 150 mg DAILY ORAL 10/17/16 09:00 11/16/16 08:59 10/18/16 08:22 Tramadol HCl (Ultram) 50 mg Q6H PRN ORAL For Pain 10/16/16 20:45 10/23/16 20:44 10/18/16 08:23 DARLENE VALERIO Oct 18, 2016 12:23
[2016-10-18] MEDS: ALPRAZolam 0.5mg tab ORAL PRN ×2 (12:56→21:34)
--- NOTE | 2016-10-18 13:21 | General Progress Note ---
Assessment/Plan Status: stable Status Narrative Cr 2.4 unchanged Assessment/Plan Renal failure, likely chronic with maybe superimposed acute- CP on presentation, with history of CAD and previous stent Cardiomypathy with low EJfx Anemia Pulmonary HTN Darin I Allery on the record- Plan: Monitor renal parameters- Avoid Nephrotoxics- Anemia zoie isabel NOHEMI Optimize cardiac and pulmonary status per orders Subjective ROS Limited/Unobtainable: No Constitutional: Reports: malaise, weakness Allergies: Coded Allergies: No Known Allergies (Unverified , 10/08/15) Objective Last 24 Hour Vital Signs Date Time Temp Pulse Resp B/P Pulse Ox O2 Delivery O2 Flow Rate FiO2 10/18/16 12:56 131/93 10/18/16 11:22 97.7 92 18 131/93 98 Nasal Cannula 2.0 10/18/16 09:20 96.8 10/18/16 08:23 135/100 10/18/16 08:23 133 135/100 10/18/16 08:00 91 10/18/16 07:57 96.8 133 18 135/100 99 Nasal Cannula 2.0 10/18/16 05:35 140/107 10/18/16 04:30 98.6 86 18 134/93 98 Nasal Cannula 2.0 10/18/16 04:00 90 10/18/16 00:19 152/105 10/18/16 00:14 98.8 129 20 152/105 99 Room Air 10/18/16 00:00 126 10/17/16 21:31 135 150/112 10/17/16 20:00 130 10/17/16 20:00 97.8 135 20 150/112 100 Room Air 10/17/16 17:14 123/94 10/17/16 17:13 123/94 10/17/16 16:00 125 10/17/16 15:44 98.1 98 21 123/94 99 Room Air Intake and Output 10/17/16 10/18/16 19:00 07:00 Intake Total 600 ml 240 ml Balance 600 ml 240 ml Intake Oral 600 ml 240 ml # Voids 1 2 Laboratory Tests 10/18/16 06:55: White Blood Count 5.1, Red Blood Count 3.55L, Hemoglobin 11.3L, Hematocrit 32.8L , Mean Corpuscular Volume 93, Mean Corpuscular Hemoglobin 31.8H, Mean Corpuscular Hemoglobin Concent 34.4, Red Cell Distribution Width 13.6, Platelet Count 234, Mean Platelet Volume 6.4L, Neutrophils (%) (Auto) 60.1, Lymphocytes ( %) (Auto) 28.9, Monocytes (%) (Auto) 8.6, Eosinophils (%) (Auto) 1.4, Basophils (%) (Auto) 1.0, Sodium Level 141, Potassium Level 4.2, Chloride Level 105, Carbon Dioxide Level 19L, Anion Gap 17H, Blood Urea Nitrogen 44H, Creatinine 2.4H, Estimat Glomerular Filtration Rate , Glucose Level 133H, Hemoglobin A1c [ Pending], Uric Acid [Pending], Calcium Level 10.6H, Phosphorus Level 3.7, Magnesium Level 2.0, Iron Level [Pending], Unsaturated Iron Binding [Pending], Ferritin [Pending], Total Bilirubin 0.4, Gamma Glutamyl Transpeptidase [Pending] , Aspartate Amino Transf (AST/SGOT) 35, Alanine Aminotransferase (ALT/SGPT) 50H , Alkaline Phosphatase 84, Troponin I 0.65*H, C-Reactive Protein, Quantitative [ Pending], Pro-B-Type Natriuretic Peptide 76594S, Total Protein 7.0, Albumin 3.6 , Globulin 3.4, Albumin/Globulin Ratio 1.0, Triglycerides Level [Pending], Cholesterol Level [Pending], LDL Cholesterol [Pending], HDL Cholesterol [Pending ], Cholesterol/HDL Ratio [Pending], Vitamin B12 Level [Pending], Folate [Pending ], Thyroid Stimulating Hormone (TSH) [Pending] Height (Feet): 5 Height (Inches): 4.00 Weight (Pounds): 163 General Appearance: no apparent distress, lethargic Objective physical exam unchaged RONEL GIRALDO Oct 18, 2016 13:21
[2016-10-18 14:00] LABS: CHOLESTEROL 198 mg/dL (< 200); CHOLESTEROL/HDL RATIO 3.4 (3.3-4.4); CRP QUANT 0.6 mg/dL (< 0.5); LDL CHOLESTEROL (CALC.) 125 mg/dL (60-99); URIC ACID 10.2 mg/dL (3.0-7.5)
[2016-10-18 14:06] LABS: FERRITIN 117 ng/mL (13-150)
[2016-10-18 14:14] LABS: HEMOGLOBIN A1C 4.9 % (< 6.0)
[2016-10-18 16:00] VITALS: BP 100/69
--- NOTE | 2016-10-18 17:21 | Diagnostic Imaging Report ---
Indication: Acute renal failure Technique: Grayscale and duplex images of the kidneys, retroperitoneum, and bladder were obtained. Comparison:10/08/2015 Findings: Right kidney measures 10.5 cm in length. Left kidney measures 9.3 cm in length. Both kidneys demonstrate normal echogenicity. No hydronephrosis. There are bilateral small renal cysts incidentally noted. Normal inferior vena cava. Bladder is normal. When compared to the prior exam, renal echogenicity currently appears more normal than previously Impression: Negative for hydronephrosis Bilateral renal cysts Increased renal echogenicity previously described is less prominent currently.
--- NOTE | 2016-10-18 17:28 | Cardiology Progress Note ---
Assessment/Plan Assessment/Plan 1. Acute on chronic congestive heart failure. 2. Chest pain with no evidence of myonecrosis. 3. Cardiomyopathy, dilated. 4. Coronary artery disease history with right coronary artery stenting previously.neg ischemia eval 03/2016 at [facility] 5. Pulmonary hypertension. 6. Chronic renal insufficiency. 7. History of asthma. 8. History of cerebrovascular accident. min abn trop of ? sig in light of renal insuf stress test neg 6 mon ago would recommned pt fu with dr ceballos for employment specialist/program manager as previously planned d/w grand dtr at bedside cr stable bp reading fluctuate dc plans per dr shay Subjective Cardiovascular: Denies: chest pain, lightheadedness Respiratory: Denies: shortness of breath Gastrointestinal/Abdominal: Denies: abdomen distended Genitourinary: Denies: burning Subjective walked to br not seem to have dizziness or chest pain nor sob walkign to BR Objective Last 24 Hour Vital Signs Date Time Temp Pulse Resp B/P Pulse Ox O2 Delivery O2 Flow Rate FiO2 10/18/16 16:00 97.5 78 20 100/69 100 Room Air 10/18/16 12:56 131/93 10/18/16 12:00 88 10/18/16 11:22 97.7 92 18 131/93 98 Nasal Cannula 2.0 10/18/16 09:20 96.8 10/18/16 08:23 135/100 10/18/16 08:23 133 135/100 10/18/16 08:00 91 10/18/16 07:57 96.8 133 18 135/100 99 Nasal Cannula 2.0 10/18/16 05:35 140/107 10/18/16 04:30 98.6 86 18 134/93 98 Nasal Cannula 2.0 10/18/16 04:00 90 10/18/16 00:19 152/105 10/18/16 00:14 98.8 129 20 152/105 99 Room Air 10/18/16 00:00 126 10/17/16 21:31 135 150/112 10/17/16 20:00 130 10/17/16 20:00 97.8 135 20 150/112 100 Room Air General Appearance: no apparent distress, alert Cardiovascular: normal rate, regular rhythm Respiratory/Chest: lungs clear, normal breath sounds Abdomen: normal bowel sounds, non tender, soft Extremities: no swelling Intake and Output 10/17/16 10/18/16 19:00 07:00 Intake Total 600 ml 240 ml Balance 600 ml 240 ml Intake Oral 600 ml 240 ml # Voids 1 2 Laboratory Tests Test 10/18/16 06:55 White Blood Count 5.1 K/UL (4.8-10.8) Red Blood Count 3.55 M/UL (4.20-5.40) L Hemoglobin 11.3 G/DL (12.0-16.0) L Hematocrit 32.8 % (37.0-47.0) L Mean Corpuscular Volume 93 FL (80-99) Mean Corpuscular Hemoglobin 31.8 PG (27.0-31.0) H Mean Corpuscular Hemoglobin Concent 34.4 G/DL (32.0-36.0) Red Cell Distribution Width 13.6 % (11.6-14.8) Platelet Count 234 K/UL (150-450) Mean Platelet Volume 6.4 FL (6.5-10.1) L Neutrophils (%) (Auto) 60.1 % (45.0-75.0) Lymphocytes (%) (Auto) 28.9 % (20.0-45.0) Monocytes (%) (Auto) 8.6 % (1.0-10.0) Eosinophils (%) (Auto) 1.4 % (0.0-3.0) Basophils (%) (Auto) 1.0 % (0.0-2.0) Sodium Level 141 mEQ/L (135-145) Potassium Level 4.2 mEQ/L (3.4-4.9) Chloride Level 105 mEQ/L (98-107) Carbon Dioxide Level 19 mEQ/L (20-30) L Anion Gap 17 (5-15) H Blood Urea Nitrogen 44 mg/dL (7-23) H Creatinine 2.4 mg/dL (0.5-0.9) H Estimat Glomerular Filtration Rate mL/min (>60) Glucose Level 133 mg/dL (74-106) H Hemoglobin A1c 4.9 % (< 6.0) Uric Acid 10.2 mg/dL (3.0-7.5) H Calcium Level 10.6 mg/dL (8.6-10.2) H Phosphorus Level 3.7 mg/dL (2.5-4.8) Magnesium Level 2.0 mg/dL (1.7-2.5) Iron Level 50 ug/dL (37-145) Total Iron Binding Capacity 285 ug/dL (250-400) Percent Iron Saturation 18 % (15-50) Unsaturated Iron Binding 235 ug/dL (112-346) Ferritin 117 ng/mL (13-150) Total Bilirubin 0.4 mg/dL (0.0-1.2) Gamma Glutamyl Transpeptidase 45 U/L (5-36) H Aspartate Amino Transf (AST/SGOT) 35 U/L (5-40) Alanine Aminotransferase (ALT/SGPT) 50 U/L (3-33) H Alkaline Phosphatase 84 U/L (35-104) Troponin I 0.65 ng/mL (<=0.30) *H C-Reactive Protein, Quantitative 0.6 mg/dL (< 0.5) H Pro-B-Type Natriuretic Peptide 25004 pg/mL (0-125) H Total Protein 7.0 g/dL (6.6-8.7) Albumin 3.6 g/dL (3.5-5.2) Globulin 3.4 g/dL Albumin/Globulin Ratio 1.0 (1.0-2.7) Triglycerides Level 71 mg/dL (< 150) Cholesterol Level 198 mg/dL (< 200) LDL Cholesterol 125 mg/dL (60-99) H HDL Cholesterol 59 mg/dL (> 60) Cholesterol/HDL Ratio 3.4 (3.3-4.4) Vitamin B12 Level > 2000 pg/mL (211-946) H Folate Pending Thyroid Stimulating Hormone (TSH) 3.090 uIU/mL (0.300-4.500) ANGELY THAKKAR Oct 18, 2016 17:28
[2016-10-18 19:00] VITALS: BP 122/84
[2016-10-18] MEDS: Atorvastatin 80mg tab ORAL SCH (21:34)
[2016-10-19 00:04] VITALS: BP 131/88
[2016-10-19] MEDS: HydrALAZINE 10mg Tab ORAL SCH ×4 (00:06→18:00)
[2016-10-19 04:03] VITALS: BP 119/60
[2016-10-19 08:00] VITALS: BP 107/69
[2016-10-19 08:01] LABS: EOSINOPHILS % (AUTO) 2.9 % (0.0-3.0); LYMPHOCYTES % (AUTO) 46.2 % (20.0-45.0); MEAN CORPUSCULAR HEMOGLOBIN 30.4 PG (27.0-31.0); MEAN CORPUSCULAR HGB CONC 32.5 G/DL (32.0-36.0); MEAN CORPUSCULAR VOLUME 94 FL (80-99); MEAN PLATELET VOLUME 6.5 FL (6.5-10.1); MONOCYTES % (AUTO) 10.3 % (1.0-10.0); NEUTROPHILS % (AUTO) 39.7 % (45.0-75.0); PLATELET COUNT 199 K/UL (150-450); RED BLOOD COUNT 3.37 M/UL (4.20-5.40); RED CELL DISTRIBUTION WIDTH 14.3 % (11.6-14.8); WHITE BLOOD COUNT 3.6 K/UL (4.8-10.8)
[2016-10-19 08:24] LABS: ANION GAP 14 (5-15); CALCIUM 10.1 mg/dL (8.6-10.2); CARBON DIOXIDE 24 mEQ/L (20-30); CHLORIDE 105 mEQ/L (98-107); CREATININE 2.5 mg/dL (0.5-0.9); HEMOLYSIS 2; POTASSIUM 4.2 mEQ/L (3.4-4.9); SODIUM 143 mEQ/L (135-145)
[2016-10-19 08:25] LABS: TROPONIN I 0.88 ng/mL (<=0.30)
[2016-10-19] MEDS: Carvedilol 6.25mg Tab ORAL SCH ×2 (09:00→22:30)
[2016-10-19] MEDS: Aspirin Baby 81mg ORAL SCH (09:13)
[2016-10-19] MEDS: Heparin 5000 units/ml inj SUBQ SCH ×2 (09:14→22:32)
[2016-10-19 12:00] VITALS: BP 104/66
--- NOTE | 2016-10-19 13:42 | General Progress Note ---
Assessment/Plan Status: stable Status Narrative Cr stable 2.5 Assessment/Plan Status: Renal failure, likely chronic with maybe superimposed acute- CP on presentation, with history of CAD and previous stent Cardiomypathy with low EJfx Anemia Pulmonary HTN Darin I Allery on the record- Plan: Monitor renal parameters- Avoid Nephrotoxics- Anemia zoie isabel NOHEMI Optimize cardiac and pulmonary status per orders Subjective ROS Limited/Unobtainable: No Constitutional: Reports: malaise Allergies: Coded Allergies: No Known Allergies (Unverified , 10/08/15) Objective Last 24 Hour Vital Signs Date Time Temp Pulse Resp B/P Pulse Ox O2 Delivery O2 Flow Rate FiO2 10/19/16 13:00 104/66 10/19/16 12:40 104/66 10/19/16 09:13 107/69 10/19/16 09:00 88 107/69 10/19/16 08:00 97.9 73 17 107/69 100 Room Air 10/19/16 06:23 125/60 10/19/16 04:03 98.4 75 18 119/60 96 Room Air 10/19/16 04:00 76 10/19/16 00:06 131/88 10/19/16 00:04 98.7 80 19 131/88 100 Room Air 10/19/16 00:00 76 10/18/16 21:32 91 122/84 10/18/16 20:00 79 10/18/16 19:02 112/78 10/18/16 19:00 97.2 91 20 122/84 100 Room Air 10/18/16 18:00 100/69 10/18/16 16:00 97.5 78 20 100/69 100 Room Air 10/18/16 16:00 76 Intake and Output 10/18/16 10/19/16 19:00 07:00 Intake Total 320 ml 120 ml Balance 320 ml 120 ml Intake Oral 320 ml 120 ml # Voids 1 Laboratory Tests 10/19/16 06:55: White Blood Count 3.6L, Red Blood Count 3.37L, Hemoglobin 10.2L, Hematocrit 31.5L, Mean Corpuscular Volume 94, Mean Corpuscular Hemoglobin 30.4, Mean Corpuscular Hemoglobin Concent 32.5, Red Cell Distribution Width 14.3, Platelet Count 199, Mean Platelet Volume 6.5, Neutrophils (%) (Auto) 39.7L, Lymphocytes ( %) (Auto) 46.2H, Monocytes (%) (Auto) 10.3H, Eosinophils (%) (Auto) 2.9, Basophils (%) (Auto) 1.0, Sodium Level 143, Potassium Level 4.2, Chloride Level 105, Carbon Dioxide Level 24, Anion Gap 14, Blood Urea Nitrogen 44H, Creatinine 2.5H, Estimat Glomerular Filtration Rate , Glucose Level 84, Calcium Level 10.1 , Troponin I 0.88*H, Pro-B-Type Natriuretic Peptide 73810P Height (Feet): 5 Height (Inches): 4.00 Weight (Pounds): 160 General Appearance: lethargic Objective physical exam unchaged RONEL GIRALDO Oct 19, 2016 13:42
--- NOTE | 2016-10-19 14:28 | Pulmonology Progress Note ---
Assessment/Plan Problems: (1) ACS (acute coronary syndrome) (2) Shortness of breath (3) CKD (chronic kidney disease) (4) Coronary artery disease (5) Arthritis Assessment/Plan troponin in positive now Rheumatology evaluation bp stable Echo is not done yet. initiate pt/ot Subjective ROS Limited/Unobtainable: No Interval Events: c/p left large toe pain, Allergies: Coded Allergies: No Known Allergies (Unverified , 10/08/15) Objective Last 24 Hour Vital Signs Date Time Temp Pulse Resp B/P Pulse Ox O2 Delivery O2 Flow Rate FiO2 10/19/16 13:00 104/66 10/19/16 12:40 104/66 10/19/16 12:00 98.4 78 17 104/66 98 Room Air 10/19/16 09:13 107/69 10/19/16 09:00 88 107/69 10/19/16 08:00 97.9 73 17 107/69 100 Room Air 10/19/16 06:23 125/60 10/19/16 04:03 98.4 75 18 119/60 96 Room Air 10/19/16 04:00 76 10/19/16 00:06 131/88 10/19/16 00:04 98.7 80 19 131/88 100 Room Air 10/19/16 00:00 76 10/18/16 21:32 91 122/84 10/18/16 20:00 79 10/18/16 19:02 112/78 10/18/16 19:00 97.2 91 20 122/84 100 Room Air 10/18/16 18:00 100/69 10/18/16 16:00 97.5 78 20 100/69 100 Room Air 10/18/16 16:00 76 Intake and Output 10/18/16 10/19/16 19:00 07:00 Intake Total 320 ml 120 ml Balance 320 ml 120 ml Intake Oral 320 ml 120 ml # Voids 1 General Appearance: WD/WN HEENT: normocephalic Respiratory/Chest: chest wall non-tender, normal breath sounds Abdomen: normal bowel sounds, soft, non tender Genitourinary: normal external genitalia Skin: no rash Laboratory Tests 10/19/16 06:55: White Blood Count 3.6L, Red Blood Count 3.37L, Hemoglobin 10.2L, Hematocrit 31.5L, Mean Corpuscular Volume 94, Mean Corpuscular Hemoglobin 30.4, Mean Corpuscular Hemoglobin Concent 32.5, Red Cell Distribution Width 14.3, Platelet Count 199, Mean Platelet Volume 6.5, Neutrophils (%) (Auto) 39.7L, Lymphocytes ( %) (Auto) 46.2H, Monocytes (%) (Auto) 10.3H, Eosinophils (%) (Auto) 2.9, Basophils (%) (Auto) 1.0, Sodium Level 143, Potassium Level 4.2, Chloride Level 105, Carbon Dioxide Level 24, Anion Gap 14, Blood Urea Nitrogen 44H, Creatinine 2.5H, Estimat Glomerular Filtration Rate , Glucose Level 84, Calcium Level 10.1 , Troponin I 0.88*H, Pro-B-Type Natriuretic Peptide 51194H Current Medications Medications (Trade) Dose Ordered Sig/Haley Route PRN Reason Start Time Stop Time Status Last Admin Dose Admin Acetaminophen (Tylenol) 650 mg Q6H PRN ORAL Mild Pain/Temp > 100.5 10/16/16 20:45 11/15/16 20:44 10/19/16 09:37 Alprazolam (Xanax) 2 mg Q8H PRN ORAL For Anxiety 10/18/16 11:45 10/25/16 11:44 10/18/16 21:34 Aspirin (ASA) 81 mg DAILY ORAL 10/17/16 09:00 11/16/16 08:59 10/19/16 09:13 Atorvastatin Calcium (Lipitor) 80 mg BEDTIME ORAL 10/17/16 21:00 11/16/16 20:59 10/18/16 21:34 Carvedilol (Coreg) 6.25 mg EVERY 12 HOURS ORAL 10/17/16 21:00 11/16/16 20:59 10/18/16 21:32 Clopidogrel Bisulfate (Plavix) 75 mg DAILY ORAL 10/17/16 09:00 11/16/16 08:59 10/19/16 09:13 Furosemide (Lasix) 20 mg TWICE A DAY ORAL 10/16/16 23:50 11/15/16 23:49 10/18/16 19:01 Gabapentin (Neurontin) 300 mg BEDTIME ORAL 10/16/16 21:00 11/15/16 20:59 10/18/16 21:34 Heparin Sodium (Porcine) (Heparin 5000 units/ml) 5,000 units EVERY 12 HOURS SUBQ 10/16/16 23:51 11/15/16 23:50 10/19/16 09:14 Hydralazine HCl (Apresoline) 10 mg EVERY 6 HOURS ORAL 10/17/16 00:00 11/16/16 00:00 10/19/16 06:23 Isosorbide Dinitrate (Isordil) 10 mg TID ORAL 10/17/16 13:00 11/16/16 12:59 10/19/16 09:13 Nitroglycerin (Ntg) 0.4 mg Q5M PRN SL Prn Chest Pain 10/17/16 07:15 11/16/16 07:14 10/17/16 07:54 Ranitidine HCl (Zantac) 150 mg DAILY ORAL 10/17/16 09:00 11/16/16 08:59 10/19/16 09:13 Tramadol HCl (Ultram) 50 mg Q6H PRN ORAL For Pain 10/16/16 20:45 10/23/16 20:44 10/18/16 08:23 DARLENE VALERIO Oct 19, 2016 14:28
[2016-10-19 16:00] VITALS: BP 119/79
--- NOTE | 2016-10-19 18:18 | Cardiology Progress Note ---
Assessment/Plan Assessment/Plan 1. Acute on chronic congestive heart failure. 2. Chest pain with no evidence of myonecrosis. 3. Cardiomyopathy, dilated. 4. Coronary artery disease history with right coronary artery stenting previously.neg ischemia eval 03/2016 at [facility] 5. Pulmonary hypertension. 6. Chronic renal insufficiency. 7. History of asthma. 8. History of cerebrovascular accident. 9. ? gout min abn trop of ? sig in light of renal insuf stress test neg 6 mon ago would recommned pt fu with dr ceballos for hand plug shaper as previously planned agian i asked her to see him jeanie post dc cr higher bp reading fluctuate will dc hydralazien and isordil d/w rn dc plans per dr laurita norton med will be a problem wiht renal insuf Subjective Cardiovascular: Denies: chest pain, lightheadedness, palpitations Gastrointestinal/Abdominal: Denies: abdomen distended Genitourinary: Denies: burning Subjective walked to br not seem to have dizziness or chest pain nor sob walkign to BR has righgt foot pain Objective Last 24 Hour Vital Signs Date Time Temp Pulse Resp B/P Pulse Ox O2 Delivery O2 Flow Rate FiO2 10/19/16 16:00 97.9 84 20 119/79 96 Room Air 10/19/16 13:00 104/66 10/19/16 12:40 104/66 10/19/16 12:00 98.4 78 17 104/66 98 Room Air 10/19/16 11:55 83 10/19/16 09:13 107/69 10/19/16 09:00 88 107/69 10/19/16 08:07 78 10/19/16 08:00 97.9 73 17 107/69 100 Room Air 10/19/16 06:23 125/60 10/19/16 04:03 98.4 75 18 119/60 96 Room Air 10/19/16 04:00 76 10/19/16 00:06 131/88 10/19/16 00:04 98.7 80 19 131/88 100 Room Air 10/19/16 00:00 76 10/18/16 21:32 91 122/84 10/18/16 20:00 79 10/18/16 19:02 112/78 10/18/16 19:00 97.2 91 20 122/84 100 Room Air General Appearance: alert Neck: normal alignment Cardiovascular: normal rate, regular rhythm Respiratory/Chest: lungs clear, normal breath sounds Abdomen: normal bowel sounds, non tender, soft Extremities: no swelling - right first mtp jpint swollen and tender to palp Intake and Output 10/18/16 10/19/16 19:00 07:00 Intake Total 320 ml 120 ml Balance 320 ml 120 ml Intake Oral 320 ml 120 ml # Voids 1 Laboratory Tests Test 10/19/16 06:55 White Blood Count 3.6 K/UL (4.8-10.8) L Red Blood Count 3.37 M/UL (4.20-5.40) L Hemoglobin 10.2 G/DL (12.0-16.0) L Hematocrit 31.5 % (37.0-47.0) L Mean Corpuscular Volume 94 FL (80-99) Mean Corpuscular Hemoglobin 30.4 PG (27.0-31.0) Mean Corpuscular Hemoglobin Concent 32.5 G/DL (32.0-36.0) Red Cell Distribution Width 14.3 % (11.6-14.8) Platelet Count 199 K/UL (150-450) Mean Platelet Volume 6.5 FL (6.5-10.1) Neutrophils (%) (Auto) 39.7 % (45.0-75.0) L Lymphocytes (%) (Auto) 46.2 % (20.0-45.0) H Monocytes (%) (Auto) 10.3 % (1.0-10.0) H Eosinophils (%) (Auto) 2.9 % (0.0-3.0) Basophils (%) (Auto) 1.0 % (0.0-2.0) Sodium Level 143 mEQ/L (135-145) Potassium Level 4.2 mEQ/L (3.4-4.9) Chloride Level 105 mEQ/L (98-107) Carbon Dioxide Level 24 mEQ/L (20-30) Anion Gap 14 (5-15) Blood Urea Nitrogen 44 mg/dL (7-23) H Creatinine 2.5 mg/dL (0.5-0.9) H Estimat Glomerular Filtration Rate mL/min (>60) Glucose Level 84 mg/dL (74-106) Calcium Level 10.1 mg/dL (8.6-10.2) Troponin I 0.88 ng/mL (<=0.30) *H Pro-B-Type Natriuretic Peptide 13965 pg/mL (0-125) H ANGELY THAKKAR Oct 19, 2016 18:18
[2016-10-19] MEDS: traMADol 50mg tab ORAL PRN (18:35)
--- NOTE | 2016-10-19 18:50 | Internal Med Progress Note ---
Subjective Date of Service: Oct 19, 2016 Physician Name HuffMeng Attending Physician Eddie Alvarez MD Current Medications Medications (Trade) Dose Ordered Sig/Haley Route PRN Reason Start Time Stop Time Status Last Admin Dose Admin Acetaminophen (Tylenol) 650 mg Q6H PRN ORAL Mild Pain/Temp > 100.5 10/16/16 20:45 11/15/16 20:44 10/19/16 09:37 Alprazolam (Xanax) 2 mg Q8H PRN ORAL For Anxiety 10/18/16 11:45 10/25/16 11:44 10/18/16 21:34 Aspirin (ASA) 81 mg DAILY ORAL 10/17/16 09:00 11/16/16 08:59 10/19/16 09:13 Atorvastatin Calcium (Lipitor) 80 mg BEDTIME ORAL 10/17/16 21:00 11/16/16 20:59 10/18/16 21:34 Carvedilol (Coreg) 6.25 mg EVERY 12 HOURS ORAL 10/17/16 21:00 11/16/16 20:59 10/18/16 21:32 Clopidogrel Bisulfate (Plavix) 75 mg DAILY ORAL 10/17/16 09:00 11/16/16 08:59 10/19/16 09:13 Furosemide (Lasix) 20 mg TWICE A DAY ORAL 10/16/16 23:50 11/15/16 23:49 10/19/16 18:35 Gabapentin (Neurontin) 300 mg BEDTIME ORAL 10/16/16 21:00 11/15/16 20:59 10/18/16 21:34 Heparin Sodium (Porcine) (Heparin 5000 units/ml) 5,000 units EVERY 12 HOURS SUBQ 10/16/16 23:51 11/15/16 23:50 10/19/16 09:14 Nitroglycerin (Ntg) 0.4 mg Q5M PRN SL Prn Chest Pain 10/17/16 07:15 11/16/16 07:14 10/17/16 07:54 Ranitidine HCl (Zantac) 150 mg DAILY ORAL 10/17/16 09:00 11/16/16 08:59 10/19/16 09:13 Tramadol HCl (Ultram) 50 mg Q6H PRN ORAL For Pain 10/16/16 20:45 10/23/16 20:44 10/19/16 18:35 Allergies: Coded Allergies: No Known Allergies (Unverified , 10/08/15) ROS Limited/Unobtainable: No Constitutional: Reports: no symptoms HEENT: Reports: no symptoms Cardiovascular: Reports: chest pain Respiratory: Reports: no symptoms Gastrointestinal/Abdominal: Reports: no symptoms Genitourinary: Reports: no symptoms Neurologic/Psychiatric: Reports: no symptoms Subjective 75YO F admitted for chest pain. Now CHF and elevated cardiac enzymes. Cover for Int [facility] - Dr Alvarez. C/O left great toe pain Objective Last Vital Signs Date Time Temp Pulse Resp B/P Pulse Ox O2 Delivery O2 Flow Rate FiO2 10/19/16 16:00 97.9 84 20 119/79 96 Room Air 10/18/16 11:22 2.0 Laboratory Tests Test 10/19/16 06:55 White Blood Count 3.6 K/UL (4.8-10.8) L Red Blood Count 3.37 M/UL (4.20-5.40) L Hemoglobin 10.2 G/DL (12.0-16.0) L Hematocrit 31.5 % (37.0-47.0) L Mean Corpuscular Volume 94 FL (80-99) Mean Corpuscular Hemoglobin 30.4 PG (27.0-31.0) Mean Corpuscular Hemoglobin Concent 32.5 G/DL (32.0-36.0) Red Cell Distribution Width 14.3 % (11.6-14.8) Platelet Count 199 K/UL (150-450) Mean Platelet Volume 6.5 FL (6.5-10.1) Neutrophils (%) (Auto) 39.7 % (45.0-75.0) L Lymphocytes (%) (Auto) 46.2 % (20.0-45.0) H Monocytes (%) (Auto) 10.3 % (1.0-10.0) H Eosinophils (%) (Auto) 2.9 % (0.0-3.0) Basophils (%) (Auto) 1.0 % (0.0-2.0) Sodium Level 143 mEQ/L (135-145) Potassium Level 4.2 mEQ/L (3.4-4.9) Chloride Level 105 mEQ/L (98-107) Carbon Dioxide Level 24 mEQ/L (20-30) Anion Gap 14 (5-15) Blood Urea Nitrogen 44 mg/dL (7-23) H Creatinine 2.5 mg/dL (0.5-0.9) H Estimat Glomerular Filtration Rate mL/min (>60) Glucose Level 84 mg/dL (74-106) Calcium Level 10.1 mg/dL (8.6-10.2) Troponin I 0.88 ng/mL (<=0.30) *H Pro-B-Type Natriuretic Peptide 54545 pg/mL (0-125) H Intake and Output 10/18/16 10/19/16 19:00 07:00 Intake Total 320 ml 120 ml Balance 320 ml 120 ml Intake Oral 320 ml 120 ml # Voids 1 Objective General Appearance: WD/WN, no apparent distress, alert EENT: PERRL/EOMI, normal ENT inspection Neck: non-tender, normal alignment, supple Cardiovascular: normal peripheral pulses, normal rate, regular rhythm, no gallop/murmur, no JVD Respiratory/Chest: chest wall non-tender, lungs clear, no respiratory distress , no accessory muscle use, crackles/rales Abdomen: normal bowel sounds, non tender, soft, no organomegaly, no mass Extremities: normal range of motion, non-tender Neurologic: quality director II-XII grossly normal, no motor/sensory deficits Assessment/Plan Problem List: (1) Renal failure Assessment & Plan: Hypertensive renal dis. See nephrology note. (2) CHF (congestive heart failure) (3) Chest pain Assessment & Plan: See cardiology consult. Elevated cardiac enzymes; D/C stress test per cardiology. (4) Cardiomyopathy Assessment & Plan: EF 20%. See cardiology note. Await AICD and pacemaker. (5) Hypertension Assessment & Plan: Continue coreg and hydralazine. (6) Hypertensive kidney disease (7) Coronary artery disease Assessment & Plan: S/P stent. Await AICD and pacemaker. (8) CKD (chronic kidney disease) Assessment & Plan: See nephrology note. (9) Gout due to renal impairment involving toe of left foot Assessment & Plan: Await podiatry consult. Status: not improved MENG HUFF Oct 19, 2016 18:50
[2016-10-19 20:00] VITALS: BP 127/89
[2016-10-19] MEDS: Atorvastatin 80mg tab ORAL SCH (22:31)
[2016-10-19] MEDS: ALPRAZolam 0.5mg tab ORAL PRN (22:31)
[2016-10-20 00:15] VITALS: BP 128/90
[2016-10-20] MEDS: Nitroglycerin Subl 0.4mg tab (Bottle Of 25) SL PRN ×2 (02:05→10:22)
[2016-10-20] MEDS: traMADol 50mg tab ORAL PRN ×2 (02:31→20:24)
[2016-10-20 04:00] VITALS: BP 139/96
[2016-10-20 08:00] VITALS: BP 126/90
[2016-10-20] MEDS: Carvedilol 6.25mg Tab ORAL SCH ×2 (08:14→20:25)
[2016-10-20] MEDS: Heparin 5000 units/ml inj SUBQ SCH ×2 (08:15→20:27)
[2016-10-20] MEDS: Aspirin Baby 81mg ORAL SCH (08:15)
[2016-10-20] MEDS: PredniSONE 5mg tab ORAL SCH (08:15)
--- NOTE | 2016-10-20 11:22 | Diagnostic Imaging Report ---
Indication: FALL, pain Technique: 3 views right foot Comparison: None Findings: There is hallux valgus. No acute fractures. No dislocations. There are degenerative changes of the midfoot. Impression: Findings as noted. No acute process
--- NOTE | 2016-10-20 11:28 | Diagnostic Imaging Report ---
Indication: FALL, foot pain Technique: 3 views left foot Comparison: none Findings: There is hallux longus and metatarsus adductus. No acute fractures. No dislocations. Joint spaces are preserved. Impression: Negative
[2016-10-20 12:00] VITALS: BP 131/93
--- NOTE | 2016-10-20 12:12 | General Progress Note ---
Assessment/Plan Status: unchanged Status Narrative no labs today Assessment/Plan Status: Renal failure, likely chronic with maybe superimposed acute- CP on presentation, with history of CAD and previous stent Cardiomypathy with low EJfx Anemia Pulmonary HTN Darin I Allery on the record- Plan: Monitor renal parameters- Avoid Nephrotoxics- Anemia zoie isabel NOHEMI Optimize cardiac and pulmonary status per orders Subjective ROS Limited/Unobtainable: No Constitutional: Reports: malaise, weakness Allergies: Coded Allergies: No Known Allergies (Unverified , 10/08/15) Objective Last 24 Hour Vital Signs Date Time Temp Pulse Resp B/P Pulse Ox O2 Delivery O2 Flow Rate FiO2 10/20/16 10:22 146/103 10/20/16 08:14 77 126/90 10/20/16 08:00 79 10/20/16 08:00 96.7 77 17 126/90 95 Nasal Cannula 2.0 10/20/16 04:00 130 10/20/16 04:00 98.3 129 20 139/96 100 Room Air 10/20/16 03:30 98.5 10/20/16 02:05 141/114 10/20/16 00:15 98.5 82 19 128/90 100 Nasal Cannula 2.0 10/20/16 00:00 81 10/19/16 22:30 83 127/89 10/19/16 20:00 102 10/19/16 20:00 97.8 83 20 127/89 96 Room Air 10/19/16 16:00 82 10/19/16 16:00 97.9 84 20 119/79 96 Room Air 10/19/16 13:00 104/66 10/19/16 12:40 104/66 Intake and Output 10/19/16 10/20/16 19:00 07:00 Intake Total 630 ml 260 ml Balance 630 ml 260 ml Intake Oral 630 ml 260 ml # Voids 2 2 Laboratory Tests 10/20/16 05:05: Erythrocyte Sedimentation Rate 26, C-Reactive Protein, Quantitative < 0.3, Rheumatoid Factor Screen [Pending], Anti-Nuclear Antibody Screen [Pending] Height (Feet): 5 Height (Inches): 4.00 Weight (Pounds): 160 General Appearance: no apparent distress, lethargic Objective physical exam unchaged RONEL GIRALDO Oct 20, 2016 12:12
--- NOTE | 2016-10-20 13:28 | Consultation ---
DATE OF CONSULTATION: 10/19/2016 NOTE: VERY POOR VOICE QUALITY REASON FOR CONSULTATION: I was asked by Dr. Reece to assess this 75-year-old patient because of swollen right first toe. HISTORY OF PRESENT ILLNESS: The patient stable condition until 1 day prior to the present admission. She developed shortness of breath chest pain. She came to [facility] ER and was admitted. One day prior to the presentation, developed pain, swelling, and tenderness in the first right toe and consultation was requested. The patient is alert, oriented and a good historian, and does want to give ample information regarding her swollen toe. She apparently had injury on her foot and the toe got dislocated. swelling and was admitted . PAST MEDICAL HISTORY: She denied any surgical history. She has a long history of congestive heart failure with ejection fraction 20%. She has high blood pressure, coronary artery disease, cardiomyopathy, chronic renal failure, and hyperlipidemia. ALLERGIES: No known drug allergies. MEDICATIONS: The patient is on Xanax 2 mg every eight hours p.r.n. she has been taking for more than 30 years, aspirin 81 mg daily, Lipitor 20 mg daily, carvedilol 12.5 mg b.i.d., Plavix 75 mg daily, vitamin D 50,000 units weekly, b.i.d., Advair 100/50 mcg 1 puff b.i.d., Lasix 20 mg daily, gabapentin 300 mg p.o. at bedtime, hydralazine 10 mg q. 6h., tramadol 50 mg p.o. p.r.n., Zantac 150 mg p.o. daily, Diovan 40 mg daily, and Nephro-Riley 1 tablet daily. FAMILY HISTORY: She did not know her father and mother, they at very young age. She has one sister in good health. She has 2 brothers. None of them has connective tissue disease. She has 1 son and 1 daughter, all in good health. SOCIAL HISTORY: She is single. She lives in her own apartment with a caregiver. She denied any smoking, drinking, or the use of illicit drugs. REVIEW OF SYSTEMS: Cardiovascular: The patient denied any chest pain, shortness of breath, palpitations, or dizziness, but she did have symptom yesterday. Pulmonary: The patient has chronic cough with intermittent expectoration. Gastrointestinal: Appetite is moderate. Her weight is stable. She has no dysphagia or dyspepsia. No bowel movement disorder. Genitourinary: The patient denied any dysuria, frequency, or incontinence and nocturia is 0 to 2. Joints: The patient denied any swelling shoulder, elbow, knee, ankle, and feet. Has pain associated with activity with poor quality of sleep, waking up on a regular basis and has concentration and function and memory as well. Central Nervous System: Sleep is poor quality. She has no numbness, tingling, seizure disorder, and has no headaches. PHYSICAL EXAMINATION: VITAL SIGNS: Blood pressure 119/79, her pulse is 84, respirations were 20, and temperature 97.9 degrees. HEENT: Eyes were normal. Pupils were round, equal, and reacting to light. Sclerae were white. Conjunctivae were pink. Extraocular movements were normal. Temporal arteries were palpable bilaterally. There was no bilateral temporal wasting. Visual monique to confrontation were normal. Neglect sign was negative. In particular, there was no conjunctivitis or iridocyclitis. ENT, mucous membranes were not dehydrated. Auditory canals were clear and tympanic membranes could not be visualized. Nasal cavity was not congested. Nasal septum was intact. Soft palate was free of ulcerations. Pharynx was clear from exudate and tonsillar hypertrophy. Uvula gem to phonation. Tongue was moist, midline, and normally papillated. In particular, there was no sign of consolidation in the bilateral nasal mucosa. NECK: Supple. There was no goiter. No mass. No lymphadenopathy. There was no JVD. No bruits. Carotid upstroke was 2+. LUNGS: Clear. HEART: PMI was in the fifth left intercostal space in midclavicular line and difficult to locate. There was soft S1 and soft S2. There was no murmur. No arrhythmia. No S3. No S4. No pericardial rub. ABDOMEN: Soft and nontender without organomegaly. There were no masses palpable. Normal bowel sounds without bruits. There was no guarding. No rebound tenderness. No ascites. No hernia. No CVA tenderness. Liver span was 8 cm, smooth, and nontender. EXTREMITIES: No cyanosis, no clubbing, and no edema. Extremities were warm. NEUROLOGICAL: Reflexes in biceps, triceps, and brachioradialis were symmetric and equal. Patellar retinaculum was symmetric and equal. Plantar were in flexion. Cranial nerves II through XII were symmetric and equal. Cerebellar function, there was no tremor. No nystagmus. No extrapyramidal rigidity. Sensory exam to pinprick, cotton touch, and position are grossly normal. Motor strength was 5/5 against resistance in upper and lower extremities in proximal and distal muscles, corresponds to age. JOINTS: Shoulder and elbow, PIP and DIP were normal. There was no abnormal swelling, tenderness, crepitus, and there was no loss of hyperextension. fifth digit on the left side and the second on the right side. Passive range of motion of both hips, knees and ankle. Feet were normal. The right toe was warm, swollen, and tender, but the skin was not hypersensitive and passive range of motion did not reveal any fluctuations tenderness. LABORATORY DATA: Hemoglobin is 10.2, hematocrit 31.5 with MCV of 94, WBC of 3.6, and platelets are 199,000. Her BUN and creatinine 24 and 2.5 respectively. Her sodium is 143, potassium 4.2, chloride 105, and CO2 is 24. Her CRP is 0.6. ProBNP of 45,000. Troponin was . Her calcium is 10.1. Uric acid was 10.2. IMPRESSION: The patient has synovitis of the first right toe; however, this is not synovitis with severe pain, throbbing skin hypersensitivity. This patient's skin is known to have hypersensitivity quality. PLAN: X-ray of this foot will be taken. ESR, CRP, RPR, TOMAS, and rheumatoid factor will be taken. The patient will be started on allopurinol 100 mg daily and prednisone 10 mg p.o. b.i.d. for the next few days. Repeat laboratory tests will be done in the a.m. Dorota Dodd M.D. DR: JON JOB#: [id number] CC:
[2016-10-20 16:00] VITALS: BP 115/86
--- NOTE | 2016-10-20 17:35 | Internal Med Progress Note ---
Subjective Date of Service: Oct 20, 2016 Physician Name Meng Huff Attending Physician Eddie Alvarez MD Current Medications Medications (Trade) Dose Ordered Sig/Haley Route PRN Reason Start Time Stop Time Status Last Admin Dose Admin Acetaminophen (Tylenol) 650 mg Q6H PRN ORAL Mild Pain/Temp > 100.5 10/16/16 20:45 11/15/16 20:44 10/19/16 09:37 Alprazolam (Xanax) 2 mg Q8H PRN ORAL For Anxiety 10/18/16 11:45 10/25/16 11:44 10/19/16 22:31 Aspirin (ASA) 81 mg DAILY ORAL 10/17/16 09:00 11/16/16 08:59 10/20/16 08:15 Atorvastatin Calcium (Lipitor) 80 mg BEDTIME ORAL 10/17/16 21:00 11/16/16 20:59 10/19/16 22:31 Carvedilol (Coreg) 6.25 mg EVERY 12 HOURS ORAL 10/17/16 21:00 11/16/16 20:59 10/20/16 08:14 Clopidogrel Bisulfate (Plavix) 75 mg DAILY ORAL 10/17/16 09:00 11/16/16 08:59 10/20/16 08:14 Furosemide (Lasix) 20 mg TWICE A DAY ORAL 10/16/16 23:50 11/15/16 23:49 10/20/16 08:14 Gabapentin (Neurontin) 300 mg BEDTIME ORAL 10/16/16 21:00 11/15/16 20:59 10/19/16 22:30 Heparin Sodium (Porcine) (Heparin 5000 units/ml) 5,000 units EVERY 12 HOURS SUBQ 10/16/16 23:51 11/15/16 23:50 10/20/16 08:15 Nitroglycerin (Ntg) 0.4 mg Q5M PRN SL Prn Chest Pain 10/17/16 07:15 11/16/16 07:14 10/20/16 10:22 Prednisone (predniSONE) 10 mg DAILY ORAL 10/20/16 09:00 11/19/16 08:59 10/20/16 08:15 Ranitidine HCl (Zantac) 150 mg DAILY ORAL 10/17/16 09:00 11/16/16 08:59 10/20/16 08:15 Tramadol HCl (Ultram) 50 mg Q6H PRN ORAL For Pain 10/16/16 20:45 10/23/16 20:44 10/20/16 02:31 Allergies: Coded Allergies: No Known Allergies (Unverified , 10/08/15) ROS Limited/Unobtainable: No Constitutional: Reports: no symptoms HEENT: Reports: no symptoms Cardiovascular: Reports: chest pain Respiratory: Reports: no symptoms Gastrointestinal/Abdominal: Reports: no symptoms Genitourinary: Reports: no symptoms Neurologic/Psychiatric: Reports: no symptoms Subjective 75YO F admitted for chest pain. Now CHF and elevated cardiac enzymes. Cover for Int [facility] - Dr Alvarez. C/O left great toe pain Objective Last Vital Signs Date Time Temp Pulse Resp B/P Pulse Ox O2 Delivery O2 Flow Rate FiO2 10/20/16 16:00 97.7 78 21 115/86 99 Nasal Cannula 2.0 Laboratory Tests Test 10/20/16 05:05 Erythrocyte Sedimentation Rate 26 MM/HR (0-30) C-Reactive Protein, Quantitative < 0.3 mg/dL (< 0.5) Rheumatoid Factor Screen Pending Anti-Nuclear Antibody Screen Pending Intake and Output 10/19/16 10/20/16 19:00 07:00 Intake Total 630 ml 260 ml Balance 630 ml 260 ml Intake Oral 630 ml 260 ml # Voids 2 2 Objective General Appearance: WD/WN, no apparent distress, alert EENT: PERRL/EOMI, normal ENT inspection Neck: non-tender, normal alignment, supple Cardiovascular: normal peripheral pulses, normal rate, regular rhythm, no gallop/murmur, no JVD Respiratory/Chest: chest wall non-tender, lungs clear, no respiratory distress , no accessory muscle use, crackles/rales Abdomen: normal bowel sounds, non tender, soft, no organomegaly, no mass Extremities: normal range of motion, non-tender Neurologic: anesthesiology fellow II-XII grossly normal, no motor/sensory deficits Assessment/Plan Problem List: (1) Renal failure Assessment & Plan: Hypertensive renal dis. See nephrology note. (2) CHF (congestive heart failure) (3) Chest pain Assessment & Plan: See cardiology consult. Elevated cardiac enzymes; D/C stress test per cardiology. (4) Cardiomyopathy Assessment & Plan: EF 20%. See cardiology note. Await AICD and pacemaker. (5) Hypertension Assessment & Plan: Continue coreg and hydralazine. (6) Hypertensive kidney disease (7) Coronary artery disease Assessment & Plan: S/P stent. Await AICD and pacemaker. (8) CKD (chronic kidney disease) Assessment & Plan: See nephrology note. (9) Synovitis of toe Assessment & Plan: See podiatry note. Status: progressing MENG HUFF Oct 20, 2016 17:35
[2016-10-20 20:00] VITALS: BP 133/96
[2016-10-20] MEDS: ALPRAZolam 0.5mg tab ORAL PRN (20:25)
[2016-10-20] MEDS: Atorvastatin 80mg tab ORAL SCH (20:25)
[2016-10-21 00:02] VITALS: BP 115/70
[2016-10-21 04:15] VITALS: BP 138/97
[2016-10-21] MEDS: traMADol 50mg tab ORAL PRN (06:39)
[2016-10-21 08:00] VITALS: BP 120/79
[2016-10-21] MEDS: Carvedilol 6.25mg Tab ORAL SCH ×2 (08:03→21:02)
[2016-10-21] MEDS: Aspirin Baby 81mg ORAL SCH (08:03)
[2016-10-21] MEDS: PredniSONE 5mg tab ORAL SCH (08:05)
[2016-10-21] MEDS: Heparin 5000 units/ml inj SUBQ SCH ×2 (08:05→21:03)
[2016-10-21 08:09] LABS: BASOPHILS % (AUTO) 0.9 % (0.0-2.0); EOSINOPHILS % (AUTO) 1.9 % (0.0-3.0); LYMPHOCYTES % (AUTO) 38.6 % (20.0-45.0); MEAN CORPUSCULAR HEMOGLOBIN 30.7 PG (27.0-31.0); MEAN CORPUSCULAR HGB CONC 32.5 G/DL (32.0-36.0); MEAN CORPUSCULAR VOLUME 94 FL (80-99); MONOCYTES % (AUTO) 7.8 % (1.0-10.0); NEUTROPHILS % (AUTO) 50.8 % (45.0-75.0); PLATELET COUNT 230 K/UL (150-450); RED BLOOD COUNT 3.45 M/UL (4.20-5.40); RED CELL DISTRIBUTION WIDTH 14.8 % (11.6-14.8); WHITE BLOOD COUNT 5.4 K/UL (4.8-10.8)
[2016-10-21 08:23] LABS: ALANINE AMINOTRANSFERASE 28 U/L (3-33); ALBUMIN/GLOBULIN RATIO 1.2 (1.0-2.7); ANION GAP 15 (5-15); ASPARTATE AMINO TRANSFERASE 18 U/L (5-40); CALCIUM 10.5 mg/dL (8.6-10.2); CARBON DIOXIDE 23 mEQ/L (20-30); CHLORIDE 104 mEQ/L (98-107); CREATININE 2.3 mg/dL (0.5-0.9); HEMOLYSIS 2; MAGNESIUM 2.2 mg/dL (1.7-2.5); PHOSPHORUS 3.5 mg/dL (2.5-4.8); POTASSIUM 4.6 mEQ/L (3.4-4.9); SODIUM 142 mEQ/L (135-145); TOTAL PROTEIN 6.8 g/dL (6.6-8.7); URIC ACID 10.4 mg/dL (3.0-7.5)
[2016-10-21] MEDS: ALPRAZolam 0.5mg tab ORAL PRN ×2 (08:40→21:02)
[2016-10-21] MEDS: Nitroglycerin Subl 0.4mg tab (Bottle Of 25) SL PRN (08:41)
[2016-10-21 12:00] VITALS: BP 99/62
--- NOTE | 2016-10-21 13:59 | General Progress Note ---
Assessment/Plan Status: stable - from renal stand Assessment/Plan Status: Renal failure, likely chronic with maybe superimposed acute- CP on presentation, with history of CAD and previous stent Cardiomypathy with low EJfx Anemia Pulmonary HTN Darin I Allery on the record- Plan: Monitor renal parameters- Avoid Nephrotoxics- Anemia zoie isabel NOHEMI Optimize cardiac and pulmonary status per orders Subjective ROS Limited/Unobtainable: No Constitutional: Reports: malaise, weakness Allergies: Coded Allergies: No Known Allergies (Unverified , 10/08/15) Objective Last 24 Hour Vital Signs Date Time Temp Pulse Resp B/P Pulse Ox O2 Delivery O2 Flow Rate FiO2 10/21/16 12:00 67 10/21/16 12:00 97.7 66 17 99/62 100 Nasal Cannula 2.0 10/21/16 08:41 120/79 10/21/16 08:03 80 120/79 10/21/16 08:00 98.1 75 17 120/79 99 Room Air 10/21/16 08:00 82 10/21/16 04:15 98.8 80 18 138/97 98 Room Air 10/21/16 04:00 79 10/21/16 00:02 98.3 82 19 115/70 Room Air 10/21/16 00:00 80 10/20/16 21:23 97.7 10/20/16 20:25 81 115/86 10/20/16 20:00 97.8 110 20 133/96 99 Nasal Cannula 2.0 10/20/16 20:00 87 10/20/16 16:00 97.7 78 21 115/86 99 Nasal Cannula 2.0 10/20/16 16:00 81 Intake and Output 10/20/16 10/21/16 19:00 07:00 Intake Total 460 ml 260 ml Balance 460 ml 260 ml Intake Oral 460 ml 260 ml # Voids 2 1 # Bowel Movements 1 Laboratory Tests 10/21/16 06:50: White Blood Count 5.4, Red Blood Count 3.45L, Hemoglobin 10.6L, Hematocrit 32.6L , Mean Corpuscular Volume 94, Mean Corpuscular Hemoglobin 30.7, Mean Corpuscular Hemoglobin Concent 32.5, Red Cell Distribution Width 14.8, Platelet Count 230, Mean Platelet Volume 6.0L, Neutrophils (%) (Auto) 50.8, Lymphocytes ( %) (Auto) 38.6, Monocytes (%) (Auto) 7.8, Eosinophils (%) (Auto) 1.9, Basophils (%) (Auto) 0.9, Sodium Level 142, Potassium Level 4.6, Chloride Level 104, Carbon Dioxide Level 23, Anion Gap 15, Blood Urea Nitrogen 46H, Creatinine 2.3H , Estimat Glomerular Filtration Rate , Glucose Level 104, Uric Acid 10.4H, Calcium Level 10.5H, Phosphorus Level 3.5, Magnesium Level 2.2, Total Bilirubin 0.3, Aspartate Amino Transf (AST/SGOT) 18, Alanine Aminotransferase (ALT/SGPT) 28, Alkaline Phosphatase 67, Pro-B-Type Natriuretic Peptide 90830J, Total Protein 6.8, Albumin 3.8, Globulin 3.0, Albumin/Globulin Ratio 1.2 Height (Feet): 5 Height (Inches): 4.00 Weight (Pounds): 153 General Appearance: no apparent distress, lethargic Cardiovascular: normal rate, arrhythmia Respiratory/Chest: decreased breath sounds Abdomen: soft Objective physical exam unchaged RONEL GIRALDO Oct 21, 2016 13:59
--- NOTE | 2016-10-21 15:22 | Pulmonology Progress Note ---
Assessment/Plan Assessment/Plan ASSESSMENT chest pain r/o ACS acute on chronic CHF cardiomyopathy CAD with hx of PCI Pulmonary HTN CRI asthma hx of CVA hyperlipidemia PLAN OF CARE tele serial troponin x [address] changes, thus R/o for acute PA last troponin with minimal elevation per cardio likely 2 to renal insufficiency cardio follows stress test 6 months ago, negative cardio recommends to fup with cardio as outpt for further workup as required O2 HHN prn CXR + CM, no acute cardiopulmonary pathology otherwise stable pulmonary status no evidence of asthma exacerbation or respiratory distress ECHO with EF 10-15 % and RVSP of 37 c/w mild pulmonary HTN BP on the low side, off Hydralazine and nitrites continue ASA and Plavix continue statin, lipid panel with elevated LDL despite max dose of Lipitor ? compliance DVT, GI prophylaxis dc plan as per PMD case discussed and evaluated by supervising physician Subjective Allergies: Coded Allergies: No Known Allergies (Unverified , 10/08/15) Subjective denies cough, congestion, wheezing, no chest pain, no palpitations SR on tele Objective Last 24 Hour Vital Signs Date Time Temp Pulse Resp B/P Pulse Ox O2 Delivery O2 Flow Rate FiO2 10/21/16 12:00 67 10/21/16 12:00 97.7 66 17 99/62 100 Nasal Cannula 2.0 10/21/16 08:41 120/79 10/21/16 08:03 80 120/79 10/21/16 08:00 98.1 75 17 120/79 99 Room Air 10/21/16 08:00 82 10/21/16 04:15 98.8 80 18 138/97 98 Room Air 10/21/16 04:00 79 10/21/16 00:02 98.3 82 19 115/70 Room Air 10/21/16 00:00 80 10/20/16 21:23 97.7 10/20/16 20:25 81 115/86 10/20/16 20:00 97.8 110 20 133/96 99 Nasal Cannula 2.0 10/20/16 20:00 87 10/20/16 16:00 97.7 78 21 115/86 99 Nasal Cannula 2.0 10/20/16 16:00 81 Intake and Output 10/20/16 10/21/16 19:00 07:00 Intake Total 460 ml 260 ml Balance 460 ml 260 ml Intake Oral 460 ml 260 ml # Voids 2 1 # Bowel Movements 1 General Appearance: WD/WN, no acute distress HEENT: normocephalic, atraumatic, anicteric, mucous membranes moist Respiratory/Chest: normal breath sounds, no respiratory distress Cardiovascular: normal peripheral pulses, normal rate, regular rhythm Abdomen: normal bowel sounds, soft, non tender, non distended Genitourinary: normal external genitalia Extremities: no edema, pedal pulses normal Neurologic/Psychiatric: alert, oriented x 3, responsive Laboratory Tests 10/21/16 06:50: White Blood Count 5.4, Red Blood Count 3.45L, Hemoglobin 10.6L, Hematocrit 32.6L , Mean Corpuscular Volume 94, Mean Corpuscular Hemoglobin 30.7, Mean Corpuscular Hemoglobin Concent 32.5, Red Cell Distribution Width 14.8, Platelet Count 230, Mean Platelet Volume 6.0L, Neutrophils (%) (Auto) 50.8, Lymphocytes ( %) (Auto) 38.6, Monocytes (%) (Auto) 7.8, Eosinophils (%) (Auto) 1.9, Basophils (%) (Auto) 0.9, Sodium Level 142, Potassium Level 4.6, Chloride Level 104, Carbon Dioxide Level 23, Anion Gap 15, Blood Urea Nitrogen 46H, Creatinine 2.3H , Estimat Glomerular Filtration Rate , Glucose Level 104, Uric Acid 10.4H, Calcium Level 10.5H, Phosphorus Level 3.5, Magnesium Level 2.2, Total Bilirubin 0.3, Aspartate Amino Transf (AST/SGOT) 18, Alanine Aminotransferase (ALT/SGPT) 28, Alkaline Phosphatase 67, Pro-B-Type Natriuretic Peptide 13402M, Total Protein 6.8, Albumin 3.8, Globulin 3.0, Albumin/Globulin Ratio 1.2 Current Medications Medications (Trade) Dose Ordered Sig/Haley Route PRN Reason Start Time Stop Time Status Last Admin Dose Admin Acetaminophen (Tylenol) 650 mg Q6H PRN ORAL Mild Pain/Temp > 100.5 10/16/16 20:45 11/15/16 20:44 10/19/16 09:37 Alprazolam (Xanax) 2 mg Q8H PRN ORAL For Anxiety 10/18/16 11:45 10/25/16 11:44 10/21/16 08:40 Aspirin (ASA) 81 mg DAILY ORAL 10/17/16 09:00 11/16/16 08:59 10/21/16 08:03 Atorvastatin Calcium (Lipitor) 80 mg BEDTIME ORAL 10/17/16 21:00 11/16/16 20:59 10/20/16 20:25 Carvedilol (Coreg) 6.25 mg EVERY 12 HOURS ORAL 10/17/16 21:00 11/16/16 20:59 10/21/16 08:03 Clopidogrel Bisulfate (Plavix) 75 mg DAILY ORAL 10/17/16 09:00 11/16/16 08:59 10/21/16 08:04 Furosemide (Lasix) 20 mg TWICE A DAY ORAL 10/16/16 23:50 11/15/16 23:49 10/21/16 08:04 Gabapentin (Neurontin) 300 mg BEDTIME ORAL 10/16/16 21:00 11/15/16 20:59 10/20/16 20:25 Heparin Sodium (Porcine) (Heparin 5000 units/ml) 5,000 units EVERY 12 HOURS SUBQ 10/16/16 23:51 11/15/16 23:50 10/21/16 08:05 Nitroglycerin (Ntg) 0.4 mg Q5M PRN SL Prn Chest Pain 10/17/16 07:15 11/16/16 07:14 10/21/16 08:41 Prednisone (predniSONE) 10 mg DAILY ORAL 10/20/16 09:00 11/19/16 08:59 10/21/16 08:05 Ranitidine HCl (Zantac) 150 mg DAILY ORAL 10/17/16 09:00 11/16/16 08:59 10/21/16 08:05 Tramadol HCl (Ultram) 50 mg Q6H PRN ORAL For Pain 10/16/16 20:45 10/23/16 20:44 10/21/16 06:39 [facility] NP Oct 21, 2016 15:21
[2016-10-21 16:00] VITALS: BP 115/70
--- NOTE | 2016-10-21 17:07 | Internal Med Progress Note ---
Subjective Date of Service: Oct 21, 2016 Physician Name Miguel Huff Attending Physician Eddie Alvarez MD Current Medications Medications (Trade) Dose Ordered Sig/Haley Route PRN Reason Start Time Stop Time Status Last Admin Dose Admin Acetaminophen (Tylenol) 650 mg Q6H PRN ORAL Mild Pain/Temp > 100.5 10/16/16 20:45 11/15/16 20:44 10/19/16 09:37 Alprazolam (Xanax) 2 mg Q8H PRN ORAL For Anxiety 10/18/16 11:45 10/25/16 11:44 10/21/16 08:40 Aspirin (ASA) 81 mg DAILY ORAL 10/17/16 09:00 11/16/16 08:59 10/21/16 08:03 Atorvastatin Calcium (Lipitor) 80 mg BEDTIME ORAL 10/17/16 21:00 11/16/16 20:59 10/20/16 20:25 Carvedilol (Coreg) 6.25 mg EVERY 12 HOURS ORAL 10/17/16 21:00 11/16/16 20:59 10/21/16 08:03 Clopidogrel Bisulfate (Plavix) 75 mg DAILY ORAL 10/17/16 09:00 11/16/16 08:59 10/21/16 08:04 Furosemide (Lasix) 20 mg TWICE A DAY ORAL 10/16/16 23:50 11/15/16 23:49 10/21/16 08:04 Gabapentin (Neurontin) 300 mg BEDTIME ORAL 10/16/16 21:00 11/15/16 20:59 10/20/16 20:25 Heparin Sodium (Porcine) (Heparin 5000 units/ml) 5,000 units EVERY 12 HOURS SUBQ 10/16/16 23:51 11/15/16 23:50 10/21/16 08:05 Nitroglycerin (Ntg) 0.4 mg Q5M PRN SL Prn Chest Pain 10/17/16 07:15 11/16/16 07:14 10/21/16 08:41 Prednisone (predniSONE) 10 mg DAILY ORAL 10/20/16 09:00 11/19/16 08:59 10/21/16 08:05 Ranitidine HCl (Zantac) 150 mg DAILY ORAL 10/17/16 09:00 11/16/16 08:59 10/21/16 08:05 Tramadol HCl (Ultram) 50 mg Q6H PRN ORAL For Pain 10/16/16 20:45 10/23/16 20:44 10/21/16 06:39 Allergies: Coded Allergies: No Known Allergies (Unverified , 10/08/15) ROS Limited/Unobtainable: No Constitutional: Reports: no symptoms HEENT: Reports: no symptoms Cardiovascular: Reports: no symptoms Respiratory: Reports: no symptoms Gastrointestinal/Abdominal: Reports: no symptoms Genitourinary: Reports: no symptoms Neurologic/Psychiatric: Reports: no symptoms Subjective 75YO F admitted for chest pain. Now CHF and elevated cardiac enzymes. Cover for Int Med - Dr Alvarez. C/O left great toe pain. Staff states she is more confused. Objective Last Vital Signs Date Time Temp Pulse Resp B/P Pulse Ox O2 Delivery O2 Flow Rate FiO2 10/21/16 16:00 96.8 70 20 115/70 100 Room Air 10/21/16 12:00 2.0 Laboratory Tests Test 10/21/16 06:50 White Blood Count 5.4 K/UL (4.8-10.8) Red Blood Count 3.45 M/UL (4.20-5.40) L Hemoglobin 10.6 G/DL (12.0-16.0) L Hematocrit 32.6 % (37.0-47.0) L Mean Corpuscular Volume 94 FL (80-99) Mean Corpuscular Hemoglobin 30.7 PG (27.0-31.0) Mean Corpuscular Hemoglobin Concent 32.5 G/DL (32.0-36.0) Red Cell Distribution Width 14.8 % (11.6-14.8) Platelet Count 230 K/UL (150-450) Mean Platelet Volume 6.0 FL (6.5-10.1) L Neutrophils (%) (Auto) 50.8 % (45.0-75.0) Lymphocytes (%) (Auto) 38.6 % (20.0-45.0) Monocytes (%) (Auto) 7.8 % (1.0-10.0) Eosinophils (%) (Auto) 1.9 % (0.0-3.0) Basophils (%) (Auto) 0.9 % (0.0-2.0) Sodium Level 142 mEQ/L (135-145) Potassium Level 4.6 mEQ/L (3.4-4.9) Chloride Level 104 mEQ/L (98-107) Carbon Dioxide Level 23 mEQ/L (20-30) Anion Gap 15 (5-15) Blood Urea Nitrogen 46 mg/dL (7-23) H Creatinine 2.3 mg/dL (0.5-0.9) H Estimat Glomerular Filtration Rate mL/min (>60) Glucose Level 104 mg/dL (74-106) Uric Acid 10.4 mg/dL (3.0-7.5) H Calcium Level 10.5 mg/dL (8.6-10.2) H Phosphorus Level 3.5 mg/dL (2.5-4.8) Magnesium Level 2.2 mg/dL (1.7-2.5) Total Bilirubin 0.3 mg/dL (0.0-1.2) Aspartate Amino Transf (AST/SGOT) 18 U/L (5-40) Alanine Aminotransferase (ALT/SGPT) 28 U/L (3-33) Alkaline Phosphatase 67 U/L (35-104) Pro-B-Type Natriuretic Peptide 78126 pg/mL (0-125) H Total Protein 6.8 g/dL (6.6-8.7) Albumin 3.8 g/dL (3.5-5.2) Globulin 3.0 g/dL Albumin/Globulin Ratio 1.2 (1.0-2.7) Intake and Output 10/20/16 10/21/16 19:00 07:00 Intake Total 460 ml 260 ml Balance 460 ml 260 ml Intake Oral 460 ml 260 ml # Voids 2 1 # Bowel Movements 1 Objective General Appearance: WD/WN, no apparent distress, alert EENT: PERRL/EOMI, normal ENT inspection Neck: non-tender, normal alignment, supple Cardiovascular: normal peripheral pulses, normal rate, regular rhythm, no gallop/murmur, no JVD Respiratory/Chest: chest wall non-tender, lungs clear, no respiratory distress , no accessory muscle use, crackles/rales Abdomen: normal bowel sounds, non tender, soft, no organomegaly, no mass Extremities: normal range of motion, non-tender Neurologic: operations manager/coordinator II-XII grossly normal, no motor/sensory deficits Assessment/Plan Problem List: (1) Renal failure Assessment & Plan: Hypertensive renal dis. See nephrology note. (2) CHF (congestive heart failure) (3) Chest pain Assessment & Plan: See cardiology consult. Elevated cardiac enzymes; D/C stress test per cardiology. (4) Cardiomyopathy Assessment & Plan: EF 20%. See cardiology note. Await AICD and pacemaker. (5) Hypertension Assessment & Plan: Continue coreg and hydralazine. (6) Hypertensive kidney disease (7) Coronary artery disease Assessment & Plan: S/P stent. Await AICD and pacemaker. (8) CKD (chronic kidney disease) Assessment & Plan: See nephrology note. (9) Synovitis of toe Assessment & Plan: See podiatry note. (10) Confusion Assessment & Plan: neurology consult. Status: progressing MIGUEL HUFF Oct 21, 2016 17:07
--- NOTE | 2016-10-21 17:47 | Cardiology Progress Note ---
Assessment/Plan Assessment/Plan 1. Acute on chronic congestive heart failure. 2. Chest pain with no evidence of myonecrosis. 3. Cardiomyopathy, dilated. 4. Coronary artery disease history with right coronary artery stenting previously.neg ischemia eval 03/2016 at [facility] 5. Pulmonary hypertension. 6. Chronic renal insufficiency. 7. History of asthma. 8. History of cerebrovascular accident. 9. ? gout min abn trop of ? sig in light of renal insuf stress test neg 6 mon ago would recommned pt fu with dr ceballos for dredge lever operator as previously planned agian i asked her to see him jeanie post dc cr stable weight now down 5 kg d/w rn ekg reviwed reepat trop as had cp to day on laisx bid off hydralazine Subjective Cardiovascular: Denies: chest pain Respiratory: Reports: SOB with excertion, shortness of breath Gastrointestinal/Abdominal: Denies: abdominal pain Genitourinary: Denies: burning Subjective per staff co cp this am noted to be tachy got xanax imporved Objective Last 24 Hour Vital Signs Date Time Temp Pulse Resp B/P Pulse Ox O2 Delivery O2 Flow Rate FiO2 10/21/16 16:00 96.8 70 20 115/70 100 Room Air 10/21/16 12:00 67 10/21/16 12:00 97.7 66 17 99/62 100 Nasal Cannula 2.0 10/21/16 08:41 120/79 10/21/16 08:03 80 120/79 10/21/16 08:00 98.1 75 17 120/79 99 Room Air 10/21/16 08:00 82 10/21/16 04:15 98.8 80 18 138/97 98 Room Air 10/21/16 04:00 79 10/21/16 00:02 98.3 82 19 115/70 Room Air 10/21/16 00:00 80 10/20/16 21:23 97.7 10/20/16 20:25 81 115/86 10/20/16 20:00 97.8 110 20 133/96 99 Nasal Cannula 2.0 10/20/16 20:00 87 General Appearance: no apparent distress, alert Cardiovascular: normal rate, regular rhythm Respiratory/Chest: lungs clear Abdomen: normal bowel sounds, non tender, soft Extremities: no swelling Intake and Output 10/20/16 10/21/16 19:00 07:00 Intake Total 460 ml 260 ml Balance 460 ml 260 ml Intake Oral 460 ml 260 ml # Voids 2 1 # Bowel Movements 1 Laboratory Tests Test 10/21/16 06:50 White Blood Count 5.4 K/UL (4.8-10.8) Red Blood Count 3.45 M/UL (4.20-5.40) L Hemoglobin 10.6 G/DL (12.0-16.0) L Hematocrit 32.6 % (37.0-47.0) L Mean Corpuscular Volume 94 FL (80-99) Mean Corpuscular Hemoglobin 30.7 PG (27.0-31.0) Mean Corpuscular Hemoglobin Concent 32.5 G/DL (32.0-36.0) Red Cell Distribution Width 14.8 % (11.6-14.8) Platelet Count 230 K/UL (150-450) Mean Platelet Volume 6.0 FL (6.5-10.1) L Neutrophils (%) (Auto) 50.8 % (45.0-75.0) Lymphocytes (%) (Auto) 38.6 % (20.0-45.0) Monocytes (%) (Auto) 7.8 % (1.0-10.0) Eosinophils (%) (Auto) 1.9 % (0.0-3.0) Basophils (%) (Auto) 0.9 % (0.0-2.0) Sodium Level 142 mEQ/L (135-145) Potassium Level 4.6 mEQ/L (3.4-4.9) Chloride Level 104 mEQ/L (98-107) Carbon Dioxide Level 23 mEQ/L (20-30) Anion Gap 15 (5-15) Blood Urea Nitrogen 46 mg/dL (7-23) H Creatinine 2.3 mg/dL (0.5-0.9) H Estimat Glomerular Filtration Rate mL/min (>60) Glucose Level 104 mg/dL (74-106) Uric Acid 10.4 mg/dL (3.0-7.5) H Calcium Level 10.5 mg/dL (8.6-10.2) H Phosphorus Level 3.5 mg/dL (2.5-4.8) Magnesium Level 2.2 mg/dL (1.7-2.5) Total Bilirubin 0.3 mg/dL (0.0-1.2) Aspartate Amino Transf (AST/SGOT) 18 U/L (5-40) Alanine Aminotransferase (ALT/SGPT) 28 U/L (3-33) Alkaline Phosphatase 67 U/L (35-104) Pro-B-Type Natriuretic Peptide 19105 pg/mL (0-125) H Total Protein 6.8 g/dL (6.6-8.7) Albumin 3.8 g/dL (3.5-5.2) Globulin 3.0 g/dL Albumin/Globulin Ratio 1.2 (1.0-2.7) ANGELY THAKKAR Oct 21, 2016 17:47
--- NOTE | 2016-10-21 18:35 | Cardiology Report ---
APPROVED REPORT EXAM: Two-dimensional and M-mode echocardiogram with Doppler and color Doppler. INDICATION Left Ventricular Function M-Mode DIMENSIONS IVSd1.2 (0.7-1.1cm)Left Atrium (MM)5.0 (1.6-4.0cm) LVDd7.0 (3.5-5.6cm)Aortic Root2.7 (2.0-3.7cm) PWd1.8 (0.7-1.1cm)Aortic Cusp Exc.1.8 (1.5-2.0cm) LVDs6.4 (2.5-4.0cm) PWs2.0 cm Severe left ventricular enlargement. Global left ventricular hypokinesis and septal dyskinesis. Left ventricular ejection fraction estimated to be 10-15 %. Mild left ventricular hypertrophy. Small pericardial effusion. Possible pleural effusion. Moderate left atrial enlargement. Mild right ventricular enlargement. Right atrial chamber size is within normal limits. Mild focal aortic valve sclerosis with adequate cusp excursion. Mildly thickened mitral valve leaflets with normal excursion. Mild mitral annulus and aortic root calcification. Pulmonic valve not well visualized. Normal tricuspid valve structure. IVC dilated at 2.3cm with minimal physiologic collapse, estimated RAP to be 20 mmHg. A color flow and spectral Doppler study was performed and revealed: Mild aortic regurgitation. Severe mitral regurgitation. Mitral inflow velocities indicates possible pseudo normalization pattern implying significant left ventricular diastolic dysfunction (Grade II). Mild tricuspid regurgitation. Tricuspid systolic velocities suggests peak right ventricular systolic pressure of 37 mmHg, consistent with mild pulmonary hypertension. Mild pulmonic regurgitation present.
[2016-10-21 20:00] VITALS: BP 112/79
[2016-10-21] MEDS: Atorvastatin 80mg tab ORAL SCH (21:01)
[2016-10-22] VITALS: BP 131/89
[2016-10-22 04:00] VITALS: BP_SYST 133; BP_SYST 137; BP_DIAS 58; BP_DIAS 98
[2016-10-22] MEDS: traMADol 50mg tab ORAL PRN (04:52)
[2016-10-22 08:00] VITALS: BP 128/85
[2016-10-22 08:02] LABS: TROPONIN I < 0.30 ng/mL (<=0.30)
[2016-10-22] MEDS: Aspirin Baby 81mg ORAL SCH (09:22)
[2016-10-22] MEDS: Carvedilol 6.25mg Tab ORAL SCH (09:23)
[2016-10-22] MEDS: PredniSONE 5mg tab ORAL SCH (09:23)
[2016-10-22] MEDS: Heparin 5000 units/ml inj SUBQ SCH (09:24)
--- NOTE | 2016-10-22 10:12 | Pulmonology Progress Note ---
Assessment/Plan Assessment/Plan ASSESSMENT chest pain r/o ACS acute on chronic CHF cardiomyopathy CAD with hx of PCI Pulmonary HTN CRI asthma hx of CVA hyperlipidemia PLAN OF CARE tele serial troponin x [address] changes, thus R/o for acute [place] on 10/19 troponin with minimal elevation per cardio likely 2 to renal insufficiency, this am troponin negative cardio follows stress test 6 months ago, negative cardio recommends to fup with cardio as outpt for further workup as required O2 HHN prn CXR + CM, no acute cardiopulmonary pathology otherwise stable pulmonary status no evidence of asthma exacerbation or respiratory distress ECHO with EF 10-15 % and RVSP of 37 c/w mild pulmonary HTN BP on the low side, off Hydralazine and nitrites continue ASA and Plavix continue statin, lipid panel with elevated LDL despite max dose of Lipitor ? compliance DVT, GI prophylaxis dc plan as per PMD case discussed and evaluated by supervising physician Subjective Allergies: Coded Allergies: No Known Allergies (Unverified , 10/08/15) Subjective denies cough, congestion, wheezing, no chest pain, no palpitations SR on tele this am troponin negative Objective Last 24 Hour Vital Signs Date Time Temp Pulse Resp B/P Pulse Ox O2 Delivery O2 Flow Rate FiO2 10/22/16 09:23 89 128/85 10/22/16 04:00 97.9 78 18 133/98 100 Nasal Cannula 2.0 10/22/16 04:00 73 10/22/16 00:00 97.7 78 18 131/89 100 Nasal Cannula 2.0 10/22/16 00:00 72 10/21/16 21:02 79 112/79 10/21/16 20:00 74 10/21/16 20:00 96.3 79 18 112/79 Nasal Cannula 2.0 10/21/16 16:00 78 10/21/16 16:00 96.8 70 20 115/70 100 Room Air 10/21/16 12:00 67 10/21/16 12:00 97.7 66 17 99/62 100 Nasal Cannula 2.0 Intake and Output 10/21/16 10/22/16 19:00 07:00 Intake Total 560 ml 250 ml Balance 560 ml 250 ml Intake Oral 560 ml 250 ml # Voids 2 3 Objective General Appearance: WD/WN, no acute distress HEENT: normocephalic, atraumatic, anicteric, mucous membranes moist Respiratory/Chest: normal breath sounds, no respiratory distress Cardiovascular: normal peripheral pulses, normal rate, regular rhythm Abdomen: normal bowel sounds, soft, non tender, non distended Genitourinary: normal external genitalia Extremities: no edema, pedal pulses normal Neurologic/Psychiatric: alert, oriented x 3, responsive Laboratory Tests 10/22/16 06:35: Troponin I < 0.30 Current Medications Medications (Trade) Dose Ordered Sig/Haley Route PRN Reason Start Time Stop Time Status Last Admin Dose Admin Acetaminophen (Tylenol) 650 mg Q6H PRN ORAL Mild Pain/Temp > 100.5 10/16/16 20:45 11/15/16 20:44 10/19/16 09:37 Alprazolam (Xanax) 2 mg Q8H PRN ORAL For Anxiety 10/18/16 11:45 10/25/16 11:44 10/21/16 21:02 Aspirin (ASA) 81 mg DAILY ORAL 10/17/16 09:00 11/16/16 08:59 10/22/16 09:22 Atorvastatin Calcium (Lipitor) 80 mg BEDTIME ORAL 10/17/16 21:00 11/16/16 20:59 10/21/16 21:01 Carvedilol (Coreg) 6.25 mg EVERY 12 HOURS ORAL 10/17/16 21:00 11/16/16 20:59 10/22/16 09:23 Clopidogrel Bisulfate (Plavix) 75 mg DAILY ORAL 10/17/16 09:00 11/16/16 08:59 10/22/16 09:23 Furosemide (Lasix) 20 mg TWICE A DAY ORAL 10/16/16 23:50 11/15/16 23:49 10/22/16 09:23 Gabapentin (Neurontin) 300 mg BEDTIME ORAL 10/16/16 21:00 11/15/16 20:59 10/21/16 21:02 Heparin Sodium (Porcine) (Heparin 5000 units/ml) 5,000 units EVERY 12 HOURS SUBQ 10/16/16 23:51 11/15/16 23:50 10/22/16 09:24 Nitroglycerin (Ntg) 0.4 mg Q5M PRN SL Prn Chest Pain 10/17/16 07:15 11/16/16 07:14 10/21/16 08:41 Prednisone (predniSONE) 10 mg DAILY ORAL 10/20/16 09:00 11/19/16 08:59 10/22/16 09:23 Ranitidine HCl (Zantac) 150 mg DAILY ORAL 10/17/16 09:00 11/16/16 08:59 10/22/16 09:24 Tramadol HCl (Ultram) 50 mg Q6H PRN ORAL For Pain 10/16/16 20:45 10/23/16 20:44 10/22/16 04:52 Giancarlo ([facility])Waleska NP Oct 22, 2016 10:12
--- NOTE | 2016-10-22 11:39 | General Progress Note ---
Assessment/Plan Status: stable Assessment/Plan Status: Renal failure, likely chronic with maybe superimposed acute- CP on presentation, with history of CAD and previous stent Cardiomypathy with low EJfx: Left ventricular ejection fraction estimated to be 10-15 %. Anemia Pulmonary HTN Darin I Allery on the record- Plan: no labs today Monitor renal parameters- Avoid Nephrotoxics- Anemia lino lesleymaynor NOHEMI: Negative for hydronephrosis Bilateral renal cysts Increased renal echogenicity previously described is less prominent currently. Optimize cardiac and pulmonary status per orders Subjective ROS Limited/Unobtainable: No Constitutional: Reports: malaise, weakness Allergies: Coded Allergies: No Known Allergies (Unverified , 10/08/15) Objective Last 24 Hour Vital Signs Date Time Temp Pulse Resp B/P Pulse Ox O2 Delivery O2 Flow Rate FiO2 10/22/16 09:23 89 128/85 10/22/16 08:00 79 10/22/16 08:00 98.2 89 18 128/85 100 Nasal Cannula 2.0 10/22/16 04:00 97.9 78 18 133/98 100 Nasal Cannula 2.0 10/22/16 04:00 73 10/22/16 00:00 97.7 78 18 131/89 100 Nasal Cannula 2.0 10/22/16 00:00 72 10/21/16 21:02 79 112/79 10/21/16 20:00 74 10/21/16 20:00 96.3 79 18 112/79 Nasal Cannula 2.0 10/21/16 16:00 78 10/21/16 16:00 96.8 70 20 115/70 100 Room Air 10/21/16 12:00 67 10/21/16 12:00 97.7 66 17 99/62 100 Nasal Cannula 2.0 Intake and Output 10/21/16 10/22/16 19:00 07:00 Intake Total 560 ml 250 ml Balance 560 ml 250 ml Intake Oral 560 ml 250 ml # Voids 2 3 Laboratory Tests 10/22/16 06:35: Troponin I < 0.30 Height (Feet): 5 Height (Inches): 4.00 Weight (Pounds): 154 General Appearance: no apparent distress, lethargic Cardiovascular: normal rate Respiratory/Chest: decreased breath sounds Abdomen: distended Objective physical exam unchaged RONEL GIRALDO Oct 22, 2016 11:39
[2016-10-22 12:00] VITALS: BP 120/84
--- NOTE | 2016-10-22 14:35 | Cardiology Progress Note ---
Assessment/Plan Assessment/Plan 1. Acute on chronic congestive heart failure. 2. Chest pain with no evidence of myonecrosis. 3. Cardiomyopathy, dilated. 4. Coronary artery disease history with right coronary artery stenting previously.neg ischemia eval 03/2016 at [facility] 5. Pulmonary hypertension. 6. Chronic renal insufficiency. 7. History of asthma. 8. History of cerebrovascular accident. 9. ? gout min abn trop of ? sig in light of renal insuf now normal stress test neg 6 mon ago would recommned pt fu with dr ceballos for graduate advisor as previously planned agian i asked her to see him jeanie post dc cr stable weight now down 5 kg d/w rn dc plans per dr dockery Subjective Cardiovascular: Denies: chest pain, palpitations Gastrointestinal/Abdominal: Denies: abdomen distended Genitourinary: Denies: no symptoms Subjective angry about being told has intermittently been confused Objective Last 24 Hour Vital Signs Date Time Temp Pulse Resp B/P Pulse Ox O2 Delivery O2 Flow Rate FiO2 10/22/16 12:00 98.0 86 19 120/84 100 Nasal Cannula 2.0 10/22/16 12:00 78 10/22/16 09:23 89 128/85 10/22/16 08:00 79 10/22/16 08:00 98.2 89 18 128/85 100 Nasal Cannula 2.0 10/22/16 04:00 97.9 78 18 133/98 100 Nasal Cannula 2.0 10/22/16 04:00 73 10/22/16 00:00 97.7 78 18 131/89 100 Nasal Cannula 2.0 10/22/16 00:00 72 10/21/16 21:02 79 112/79 10/21/16 20:00 74 10/21/16 20:00 96.3 79 18 112/79 Nasal Cannula 2.0 10/21/16 16:00 78 10/21/16 16:00 96.8 70 20 115/70 100 Room Air General Appearance: no apparent distress Neck: supple Cardiovascular: normal rate, regular rhythm Respiratory/Chest: lungs clear, normal breath sounds Abdomen: normal bowel sounds, non tender, soft Extremities: no swelling Intake and Output 10/21/16 10/22/16 19:00 07:00 Intake Total 560 ml 250 ml Balance 560 ml 250 ml Intake Oral 560 ml 250 ml # Voids 2 3 Laboratory Tests Test 10/22/16 06:35 Troponin I < 0.30 ng/mL (<=0.30) ANGELY THAKKAR Oct 22, 2016 14:35
[2016-10-22 16:00] VITALS: BP 126/85
--- NOTE | 2016-10-22 16:27 | Cardiology Report ---
APPROVED REPORT EKG Measurement Heart [id number] Normal sinus rhythm Left axis deviation Nonspecific intraventricular block Possible Lateral infarct, age undetermined Abnormal ECG
--- NOTE | 2016-10-22 17:18 | Internal Med Progress Note ---
Subjective Date of Service: Oct 22, 2016 Physician Name Miguel Huff Attending Physician Eddie Alvarez MD Current Medications Medications (Trade) Dose Ordered Sig/Haley Route PRN Reason Start Time Stop Time Status Last Admin Dose Admin Acetaminophen (Tylenol) 650 mg Q6H PRN ORAL Mild Pain/Temp > 100.5 10/16/16 20:45 11/15/16 20:44 10/19/16 09:37 Alprazolam (Xanax) 2 mg Q8H PRN ORAL For Anxiety 10/18/16 11:45 10/25/16 11:44 10/21/16 21:02 Aspirin (ASA) 81 mg DAILY ORAL 10/17/16 09:00 11/16/16 08:59 10/22/16 09:22 Atorvastatin Calcium (Lipitor) 80 mg BEDTIME ORAL 10/17/16 21:00 11/16/16 20:59 10/21/16 21:01 Carvedilol (Coreg) 6.25 mg EVERY 12 HOURS ORAL 10/17/16 21:00 11/16/16 20:59 10/22/16 09:23 Clopidogrel Bisulfate (Plavix) 75 mg DAILY ORAL 10/17/16 09:00 11/16/16 08:59 10/22/16 09:23 Furosemide (Lasix) 20 mg TWICE A DAY ORAL 10/16/16 23:50 11/15/16 23:49 10/22/16 09:23 Gabapentin (Neurontin) 300 mg BEDTIME ORAL 10/16/16 21:00 11/15/16 20:59 10/21/16 21:02 Heparin Sodium (Porcine) (Heparin 5000 units/ml) 5,000 units EVERY 12 HOURS SUBQ 10/16/16 23:51 11/15/16 23:50 10/22/16 09:24 Nitroglycerin (Ntg) 0.4 mg Q5M PRN SL Prn Chest Pain 10/17/16 07:15 11/16/16 07:14 10/21/16 08:41 Prednisone (predniSONE) 10 mg DAILY ORAL 10/20/16 09:00 11/19/16 08:59 10/22/16 09:23 Ranitidine HCl (Zantac) 150 mg DAILY ORAL 10/17/16 09:00 11/16/16 08:59 10/22/16 09:24 Tramadol HCl (Ultram) 50 mg Q6H PRN ORAL For Pain 10/16/16 20:45 10/23/16 20:44 10/22/16 04:52 Allergies: Coded Allergies: No Known Allergies (Unverified , 10/08/15) ROS Limited/Unobtainable: No Constitutional: Reports: no symptoms HEENT: Reports: no symptoms Cardiovascular: Reports: no symptoms Respiratory: Reports: no symptoms Gastrointestinal/Abdominal: Reports: no symptoms Genitourinary: Reports: no symptoms Neurologic/Psychiatric: Reports: no symptoms Subjective 75YO F admitted for chest pain. Now CHF and elevated cardiac enzymes. Cover for Int Med - Dr Alvarez. Son at bedside. Objective Last Vital Signs Date Time Temp Pulse Resp B/P Pulse Ox O2 Delivery O2 Flow Rate FiO2 10/22/16 12:00 98.0 86 19 120/84 100 Nasal Cannula 2.0 Laboratory Tests Test 10/22/16 06:35 Troponin I < 0.30 ng/mL (<=0.30) Intake and Output 10/21/16 10/22/16 19:00 07:00 Intake Total 560 ml 250 ml Balance 560 ml 250 ml Intake Oral 560 ml 250 ml # Voids 2 3 Objective General Appearance: WD/WN, no apparent distress, alert EENT: PERRL/EOMI, normal ENT inspection Neck: non-tender, normal alignment, supple Cardiovascular: normal peripheral pulses, normal rate, regular rhythm, no gallop/murmur, no JVD Respiratory/Chest: chest wall non-tender, lungs clear, no respiratory distress , no accessory muscle use, crackles/rales Abdomen: normal bowel sounds, non tender, soft, no organomegaly, no mass Extremities: normal range of motion, non-tender Neurologic: watch engine operator II-XII grossly normal, no motor/sensory deficits Assessment/Plan Problem List: (1) Renal failure Assessment & Plan: Hypertensive renal dis. See nephrology note. (2) CHF (congestive heart failure) (3) Chest pain Assessment & Plan: See cardiology consult. Elevated cardiac enzymes; D/C stress test per cardiology. (4) Cardiomyopathy Assessment & Plan: EF 20%. See cardiology note. Await AICD and pacemaker. (5) Hypertension Assessment & Plan: Continue coreg and hydralazine. (6) Hypertensive kidney disease (7) Coronary artery disease Assessment & Plan: S/P stent. Await AICD and pacemaker arranged at [facility] with Dr Light (8) CKD (chronic kidney disease) Assessment & Plan: See nephrology note. (9) Synovitis of toe Assessment & Plan: See podiatry note. (10) Confusion Assessment & Plan: neurology consult. Status: progressing Assessment/Plan Discussed with son and patient. D/C home in am; follow up with Dr Light at [facility] for AICD implant. Patient has in home health services. MIGUEL HUFF Oct 22, 2016 17:18
[2016-10-22] MEDS: ALPRAZolam 0.5mg tab ORAL PRN (18:29)
[2016-10-23 08:47] LABS: ANTI-NUCLEAR ANTIBODY SCREEN Positive (Negative); RHEUMATOID FACTOR SCREEN <10.0 IU/mL (0.0-13.9)
--- NOTE | 2016-10-23 22:19 | Discharge Summary 2 SIG ---
DATE OF ADMISSION: 10/16/2016 DATE OF DISCHARGE: 10/22/2016 REASON FOR ADMISSION AND HISTORY OF PRESENT ILLNESS: 75-year-old female came to the emergency room due to the chest pain and shortness of breath, started the same day earlier. She had no fevers, no chills. Chest pain was worse with exertion. She took nitroglycerin without significant relief. She received aspirin and nitroglycerin by the paramedics. The patient reported similar symptoms in the past. The patient has underlying history of cardiomyopathy and CHF with an ejection fraction about 20%, per the family. The patient is scheduled for an AICD placement , however she had not made an appointment yet. The patient also has underlying medical history of hypertension, stent placement, and history of CVA. In the emergency department, the patient presented with palpitations, heart rate improved after Lopressor. There was no evidence of ACS, PE, or dissection. The patient was admitted for further workup. Laboratory work at the baseline. EKG showed sinus rhythm, heart rate 76, left bundle-branch block, and no ST changes. Chest x-ray revealed no consolidation, effusion, or pneumothorax. No acute cardiopulmonary disease. The patient admitted for further management. ADMITTING DIAGNOSES: 1. Chest pain, rule out acute coronary syndrome. 2. Chronic kidney disease. 3. Hypertension. 4. Cardiomyopathy. HOSPITAL COURSE: The patient had been admitted to telemetry floor. Serial troponin x3 were negative. EKG revealed no ST-changes. Thus, the patient was ruled out for acute CT. One of the troponin had minimal elevation, per goodwill representative likely secondary to renal insufficiency. On the morning of the discharge, troponin was negative again. Cardiology follows. Stress test six months ago was negative. Staff Development Educator recommended to follow up with goodwill representative as an outpatient for further workup and scheduled AICD placement. Chest x-ray revealed cardiomegaly, but no acute cardiopulmonary pathology, otherwise stable pulmonary status. No evidence of asthma exacerbation. No respiratory distress. Pulse oximetry stable on room air. Echocardiogram revealed ejection fraction 10% to 15% and right ventricular systolic pressure of 37 mmHg consistent with mild pulmonary hypertension. Blood pressure was on the low side. Hydralazine and nitrites stopped by goodwill representative, Continue aspirin and Plavix. Continue statin. Lipid panel was with the elevated LDL despite maximum dose of Lipitor, possibly issue of noncompliance. DVT and GI prophylaxis provided. Staff Development Educator recommended to discharge home and schedule an appointment as soon as possible with the outpatient goodwill representative, dr wolfe, for further management. Family at the bedside. Strongly encouraged to follow up with the placement of AICD. Continue aspirin and Plavix. Continue beta-mei. The patient will follow up with Dr. Wolfe as soon as possible and schedule placement of AICD. DISCHARGE DIAGNOSES: 1. Chest pain. 2. Acute coronary syndrome was ruled out. 3. Acute on chronic congestive heart failure, diastolic. 4. Cardiomyopathy. 5. Coronary artery disease. 6. History of percutaneous coronary intervention. 7. Pulmonary hypertension. 8. Chronic renal insufficiency. 9. Asthma. 10. History of cerebrovascular accident. 11. Hyperlipidemia. DISCHARGE INSTRUCTIONS: The patient was discharged to home. Follow up with Dr. Wolfe /goodwill representative for AICD placement. DISCHARGE MEDICATIONS: See medication reconciliation list. Eddie Alvarez M.D. I have been assigned to dictate discharge summary on this account and I was not involved in the patient's management. Waleska Petersencharles N.P. DR: Malissa JOB#: [id number] CC: POLO
--- NOTE | 2016-10-24 20:31 | Cardiology Report ---
APPROVED REPORT EKG Measurement Heart [id number] Sinus rhythm with occasional premature ventricular complexes Left axis deviation Left bundle branch block Abnormal ECG
== END 2016-10-22 19:15 | disposition home or self-care (01) | DRG 292 ==
LOC: EDBD 03:10 → EMR 03:30 → 2E 05:02 → EDBEDREQ 16:38
DX: I50.33 Acute on chronic diastolic (congestive) heart failure (principal); N17.9 Acute kidney failure, unspecified; I27.2 Other secondary pulmonary hypertension; I42.0 Dilated cardiomyopathy; M10.372 Gout due to renal impairment, left ankle and foot; I12.9 Hypertensive chronic kidney disease with stage 1 through stage 4 chronic kidney disease, or unspecified chronic kidney disease; N18.9 Chronic kidney disease, unspecified; E78.00 Pure hypercholesterolemia, unspecified; Z95.5 Presence of coronary angioplasty implant and graft; I44.7 Left bundle-branch block, unspecified; Z79.02 Long term (current) use of antithrombotics/antiplatelets; Z86.73 Personal history of transient ischemic attack (TIA), and cerebral infarction without residual deficits; F41.9 Anxiety disorder, unspecified; M65.871 Other synovitis and tenosynovitis, right ankle and foot; Z88.8 Allergy status to other drugs, medicaments and biological substances; R07.9 Chest pain, unspecified; D63.1 Anemia in chronic kidney disease
CPT/HCPCS: 36415; 71010; 76775; 80048; 80053; 80061; 81003; 82550; 82553; 82607; 82728; 82746; 82977; 83036; 83540; 83550; 83735; 83880; 84100; 84443; 84484; 84550; 85025; 85651; 86039; 86140; 86431; 93005; 93306; J2405